=== PATIENT | female | born 1970 | race Caucasian/White ===

== ENCOUNTER 2022-01-15 08:49 | Outpatient (REF) | payer OTHER, SELFPAY ==
--- NOTE | ~2022-01-15 | XR_ITS ---
EXAMINATION: XR AP STANDING VIEW BOTH KNEES. XR KNEE, LEFT. CLINICAL INFORMATION: Left knee pain COMPARISON: None TECHNIQUE: AP standing view of both knees. Lateral and sunrise views of the left knee. FINDINGS: Small left knee joint effusion. Mild medial compartment osteoarthritis. No fracture. Normal AP standing view of the right knee. XR/XR knee standing BI IMPRESSION: Mild medial compartment osteoarthritis of the left knee with a small joint effusion.
--- NOTE | ~2022-01-15 | XR_ITS ---
EXAMINATION: XR AP STANDING VIEW BOTH KNEES. XR KNEE, LEFT. CLINICAL INFORMATION: Left knee pain COMPARISON: None TECHNIQUE: AP standing view of both knees. Lateral and sunrise views of the left knee. FINDINGS: Small left knee joint effusion. Mild medial compartment osteoarthritis. No fracture. Normal AP standing view of the right knee. XR/XR knee LT 2V IMPRESSION: Mild medial compartment osteoarthritis of the left knee with a small joint effusion.
== END 2022-01-15 08:50 | disposition home or self-care (01) ==
LOC: HO.HOSX 08:49
PROVIDERS: Visit Provider Physician Assistant
DX: M17.12 Unilateral primary osteoarthritis, left knee (principal); S83.242D Other tear of medial meniscus, current injury, left knee, subsequent encounter; M25.561 Pain in right knee
CPT/HCPCS: 73560; 73565

== ENCOUNTER 2022-03-03 07:30 | Day surgery (SDC) | payer OTHER, SELFPAY ==
[2022-02-12 10:08] VITALS: BMI 42.5
--- NOTE | 2022-03-02 09:13 | P.CONAN_ITS ---
Documented by User: Pratibha Butcher NP 03/02/22 09:14 HPI - Anesthesia Eval Consult details Narrative: 51yo F for Left Knee Arthroscopy PMFSH Active Problems Active Problems: All Active Problems (Updated 02/12/22 @ 10:07 by Ailyn Kc RN) Osteoarthritis of right knee (Acute) Medial meniscus tear (Acute) Osteoarthritis of left knee (Acute) Past Medical History Medical History Diabetes GERD (gastroesophageal reflux disease) HTN (hypertension) Family History Family History Brother Diabetes Mother Diabetes Surgical History Surgical History H/O colonoscopy History of esophagogastroduodenoscopy (EGD) Social History Social History Household Members: Spouse and Children Housing: House Are you a primary physician locums urgent care to a significant other at home: No Do you presently have visiting nurse or other home services: No Alcohol intake: never Patient Tobacco Use Status: Never used Tobacco Current occupational status: employed Current occupation: rt handed Meds Allergies Allergy/AdvReac Type Severity Reaction Status Date / Time omeprazole Allergy Intermediate dyspnea/arnold Verified 02/27/22 11:04 h pantoprazole Allergy Intermediate Rash Verified 02/27/22 11:04 Home Medications Medication Instructions Recorded Confirmed Last Taken Type metformin 500 mg tablet,extended 500 mg PO BID 01/15/22 02/12/22 Unknown History release 24 hr propranolol 60 mg capsule,24 60 mg PO DAILY 01/15/22 02/12/22 03/03/22 History hr,extended release spironolactone 25 mg tablet 25 mg PO DAILY 01/15/22 02/12/22 Unknown History Exam Exam Date and Time: March 02, 2022912 Height,Weight and Vital Signs: Height 5 ft 3 in Weight 108.862 kg Assessment and Plan Assessment Anesthesia Assessment: Chart Reviewed Documented by User: Edison Khanna MD 03/03/22 17:15 HPI - Anesthesia Eval Consult details Narrative: 51yo F for Left Knee Arthroscopy Obesity PMFSH Past Medical History Medical History Diabetes GERD (gastroesophageal reflux disease) HTN (hypertension) Family History Family History Brother Diabetes Mother Diabetes Family history of problems with anesthesia: No Surgical History Surgical History H/O colonoscopy History of esophagogastroduodenoscopy (EGD) History of Problems with Anesthesia: No Social History Social History Household Members: Spouse and Children Housing: House Are you a primary physician locums urgent care to a significant other at home: No Do you presently have visiting nurse or other home services: No Alcohol intake: never Patient Tobacco Use Status: Never used Tobacco Current occupational status: employed Current occupation: rt handed Meds Allergies Allergy/AdvReac Type Severity Reaction Status Date / Time omeprazole Allergy Intermediate dyspnea/arnold Verified 02/27/22 11:04 h pantoprazole Allergy Intermediate Rash Verified 02/27/22 11:04 Home Medications Medication Instructions Recorded Confirmed Last Taken Type metformin 500 mg tablet,extended 500 mg PO BID 01/15/22 02/12/22 Unknown History release 24 hr propranolol 60 mg capsule,24 60 mg PO DAILY 01/15/22 02/12/22 03/03/22 History hr,extended release spironolactone 25 mg tablet 25 mg PO DAILY 01/15/22 02/12/22 Unknown History Exam Airway Mallampati Class: III TM Dist: >3cm Neck ROM: Full Loose/Missing/Broken Teeth: Yes (Chipped teeth) Heart: S1,S2 Lungs: b/l breath sounds Assessment and Plan Assessment Anesthesia Assessment: Anesthesia Plan Discussed ([employer]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 ) Final Anesthetic Review Family History of Problems with Anesthesia: No History of Problems with Anesthesia: No NPO: Yes ASA Class: III Final Preanesthetic Review: Meds/Allgs Chart Reviewed, Consent Obtained/Reviewed and Anes Risks/Benef Reviewed Patient Risk: Intermediate Procedure Risk: Intermediate Anesthetic Plan Anesthetic Plan: GA Disposition: Standard PACU
[2022-03-03] VITALS (9 sets, daily range): BP systolic 136–164; BP diastolic 64–82; PULSE 51–68; RESP 14–18; TEMP 36.2–36.6; O2SAT 96–98; BMI 42.1
[2022-03-03 07:53] LABS: Glucose, Whole Blood 114 mg/dL (60-115)
[2022-03-03] MEDS: Lactated Ringers 1,000 ML 100 ML IVCONT (08:04)
--- NOTE | 2022-03-03 08:21 | PC.NURSE ---
anesthesia using interpretor line syracom for consent
--- NOTE | 2022-03-03 08:25 | PC.NURSE ---
tiger text sent to dr. brower regarding small red ring below left knee on calf from gardening areas closed. stated okay to proceed
--- NOTE | 2022-03-03 10:08 | MHC.SHP ---
Pre-Procedural Eval Section A Date of Service: 03/03/22 The patient is an INPATIENT: No Changes since office visit: Yes Patient answered all questions; No Cold of Flu in the past 2 weeks, No New Medical Problems and No Changes in Medication The History & Physical has been completed within 30 days and I have reviewed it.: Yes Section B Chief Complaint: Other tear of medial meniscus, current injury, Allergies: Allergies Allergy/AdvReac Type Severity Reaction Status Date / Time omeprazole Allergy Intermediate dyspnea/arnold Verified 02/27/22 11:04 h pantoprazole Allergy Intermediate Rash Verified 02/27/22 11:04 Plan I have reviewed the history and physical and performed a pertinent physical examination on my patient. No changes have occurred unless specified.
--- NOTE | 2022-03-03 11:35 | P.BOP_ITS ---
Brief Operative Note Date of Service: 03/03/22 Pre-op diagnosis: Left knee MMT Post-op diagnosis: other (left knee arthritis and medial meniscus tear) Procedure: Left knee partial medial meniscectomy and chondroplasty Surgeon: Randy Lee MD Anesthesia: GETA and local Was an Independent Jeweler used for this Procedure?: No Estimated blood loss (mL): 0 Tourniquet time (min): 20 Pathology: none sent Condition: stable Disposition: PACU
--- NOTE | 2022-03-03 11:40 | P.OP_ITS ---
Operative Note Operative Note Date of Service: 03/03/22 Narrative: Date of Service: 03/03/22 Pre-op diagnosis: Left knee MMT Post-op diagnosis: other (left knee arthritis and medial meniscus tear) Procedure: Left knee partial medial meniscectomy and chondroplasty Surgeon: Randy Lee MD Anesthesia: GETA and local Was an Lead Electrical Controls Engineer used for this Procedure?: No Estimated blood loss (mL): 0 Tourniquet time (min): 20 Pathology: none sent Condition: stable Disposition: PACU Procedure in detail Patient was brought to the operating room placed supine on the arthroscopic table and prepped and draped in standard sterile fashion. A time-out was called to identify proper site proper procedure proper surgeon and IV antibiotics per weight were administered. I began by exsanguinating the limb and insufflating tourniquet to 300 mm Hg. Then made a standard anterolateral stab incision. The knee was insufflated with water and 30 degree arthroscope was placed. There was grade 1/2 fibrillations of the patella but overall suprapatellar pouch and the gutters were clean. I descended into the medial compartment where I made my medial portal under direct visualization. There was a root tear with an unatable posterior horn of the medial meniscus. There were grade 3 changes of the frmoeal condyle and grade 2 changes of the medial plateau. I used a combination of biter shaver and cautery to remove unstable portions of the meniscus. Approximately 40% meniscal volume was removed and the root was removed. Once I was satisfied with this the ACL was examined and found to be intact and the lateral compartment also was without the need for intervention. There was a osteophyte in the notch and the intermeniscal ligament was resected. I then removed all instrumentation and closed the portals with skin glue. 25 mL of 2% Marcaine with epinephrine was injected into the joint and the surrounding soft tissues. Patient was then placed in sterile dressing extubated brought recovery room stable condition. There were no known complications.
[2022-03-03] MEDS: Acetaminophen 325 MG TABLET 975 MG PO (12:28)
== END 2022-03-03 13:55 | disposition home or self-care (01) ==
PROVIDERS: PCP Physician Assistant Medical; Visit Provider Orthopaedic Surgery
PROC: (CPT 29870; principal; 2022-03-03 09:40)
DX: S83.242A Other tear of medial meniscus, current injury, left knee, initial encounter (principal); M17.12 Unilateral primary osteoarthritis, left knee; X58.XXXA Exposure to other specified factors, initial encounter; Y93.9 Activity, unspecified; Y92.9 Unspecified place or not applicable; Y99.8 Other external cause status; I10 Essential (primary) hypertension; K21.9 Gastro-esophageal reflux disease without esophagitis; E11.9 Type 2 diabetes mellitus without complications; Z79.84 Long term (current) use of oral hypoglycemic drugs; Z79.899 Other long term (current) drug therapy; Z88.8 Allergy status to other drugs, medicaments and biological substances
CPT/HCPCS: 29881; 82947; J0171; J0690; J1100; J1885; J2250; J2405; J3010

== ENCOUNTER 2022-03-30 11:00 | Outpatient (RCR) | payer OTHER, SELFPAY ==
--- NOTE | 2022-03-09 15:52 | MHC.PT.EP ---
[facility] [place] Office [place] Office [place] Office [address] Mouna Stevens [address] [phone] F: [phone] F: [phone] F: [phone] F: [phone] Physical Therapy Plan of Care Date of Evaluation: Date of Surgery: 03/03/22 Diagnosis: PARTIAL MEDIAL MENISCECTOMY AND CHONDROPLASTY Assessment: CARMEL IS A PLEASANT 51 YO [place] SPEAKING WOMAN WHO PRESENTS POD #6 FOR ORTHOPEDIC FOLLOW UP AND PT EVALUATION. UPON EXAM SHE DEMONSTRATES THE EXPECTED IMPAIRMENTS OF DECREASED ROM, DECREASED STRENGTH, ALTERED POSTURE AND POSITIONING,ALTERED GAIT AND BALANCE, AND INCREASED PAIN AND EDEMA. FUNCTIONAL LIMITATIONS INCLUDE DECREASED ABILITY TO PERFORM HOMEMAKING AND SELF-CARE TASKS, DECREASED ABILITY TO PERFORM WALKING, RUNNING, JUMPING AND SQUATTING, INABILITY TO DRIVE AND PERFORM WORK TASKS, DECREASED PARTICIPATION IN COMMUNITY AND RECREATIONAL ACTIVITIES AND DISRUPTED SLEEP. THE Pt IS A GOOD CANDIDATE FOR SKILLED PT DUE TO AGE, POTENTIAL REMEDIATION OF IMPAIRMENTS, TYPICAL DISEASE/CONDITION PROGRESSION AND PROGNOSIS, COMORBIDITIES, AND MOTIVATION. PT WOULD BENEFIT FROM TAILORED PROGRAM OF THERAPEUTIC ACTIVITIES, FUNCTIONAL TRAINING, GAIT TRAINING, POSTURAL EDUCATION, NEUROMUSCULAR RE-EDUCATION, AND MODALITIES NEEDED. Frequency and Duration: The patient will be seen 2 X WEEK FOR 4 WEEKS Short Term Goals: INITIATE HEP AND PROMOTE SELF MANAGEMENT OF SYMPTOMS Senior Living Goals: TO DEMONSTRATE FULL KNEE ROM, EQUAL ALBERT TO DEMONSTRATE FULL LE STRENGTH, EQUAL ALBERT TO ASCEND AND DESCEND STAIRS WITH RECIPROCAL GAIT WITHOUT PAIN GREATER THAN 2/10 TO AMBULATE AD DC ON LEVEL AND UNEVEN SURFACES FOR FITNESS WITHOUT PAIN GREATER THAN 2/10 Treatment Plan: Modalities to reduce pain, spasms and effusion. Manual therapy to restore motion and function. Therapeutic exercise to improve strength and flexibility. Neuromuscular re-education for posture and balance. Therapeutic activities to return to functional activities of daily living. Electronically signed by: BINDU LUNA PT, DPT Please sign and return to therapist. Thank you for your referral.
== END 2022-08-17 15:19 | disposition home or self-care (01) ==
LOC: HO.PT 11:00
PROVIDERS: Visit Provider Physician Assistant
DX: S83.242A Other tear of medial meniscus, current injury, left knee, initial encounter (principal)
CPT/HCPCS: 97110; 97161; 97530

== ENCOUNTER → 2022-10-15 08:58 | Outpatient (BNVA) | payer OTHER, SELFPAY | PROVIDERS: PCP Physician Assistant Medical; Visit Provider Nurse Practitioner | DX: Z13.89 Encounter for screening for other disorder (principal) ==

== ENCOUNTER 2022-11-04 12:47 | Outpatient (REF) | payer OTHER, SELFPAY ==
[2022-11-13 23:33] LABS: Pancreatic Elastase-1 >500 mcg/g
== END 2022-11-04 12:48 | disposition home or self-care (01) ==
LOC: HO.LNP 12:47
PROVIDERS: Visit Provider Nurse Practitioner
DX: R10.10 Upper abdominal pain, unspecified (principal); K21.9 Gastro-esophageal reflux disease without esophagitis
CPT/HCPCS: 82656; 87338

== ENCOUNTER 2022-11-05 09:45 | Outpatient (REF) | payer OTHER, SELFPAY ==
--- NOTE | ~2022-11-05 | US_ITS ---
EXAMINATION: US ABDOMEN COMPLETE CLINICAL INFORMATION: Upper abdominal pain, unspecified. COMPARISON: None TECHNIQUE: Real-time imaging of the abdominal viscera. FINDINGS: PANCREAS: Normal. ABDOMINAL AORTA: The proximal, mid, and distal segments are normal in caliber. INFERIOR VENA CAVA: Visualized portions are normal. LIVER: The liver is normal in size. The liver contour is normal. There is diffuse increased liver parenchymal echogenicity, consistent with infiltrative hepatocellular disease. No definite focal lesion is seen, but evaluation is limited due to poor sound beam penetration through the coarse echogenic liver parenchyma. There is no intrahepatic biliary duct dilatation seen. GALLBLADDER: Normal. The gallbladder is physiologically distended without evidence of stones, sludge, polyps, wall thickening or pericholecystic fluid. COMMON BILE DUCT: Normal in caliber measuring 0.4 cm in diameter. RIGHT KIDNEY: Normal. No hydronephrosis. No renal calculi or focal parenchymal lesions. The kidney measures 12.0 cm in maximum dimension. LEFT KIDNEY: Normal. No hydronephrosis. No renal calculi or focal parenchymal lesions. The kidney measures 12.1 cm in maximum dimension. SPLEEN: Normal. The spleen measures 11.8 cm in maximum dimension. FREE FLUID: None. US/US abdomen complete IMPRESSION: No acute findings to explain symptoms of abdominal pain. Increased hepatic echogenicity which can be seen in the setting of hepatic steatosis or underlying liver disease.
== END 2022-11-05 09:46 | disposition home or self-care (01) ==
LOC: HO.US 09:45
PROVIDERS: PCP Physician Assistant Medical; Visit Provider Nurse Practitioner
DX: R10.10 Upper abdominal pain, unspecified (principal); K21.9 Gastro-esophageal reflux disease without esophagitis
CPT/HCPCS: 76700

== ENCOUNTER 2022-12-08 08:18 | Outpatient (REF) | payer OTHER, SELFPAY ==
[2022-12-08 09:47] LABS: MANUAL DIFF FLAG NO
[2022-12-08 10:34] LABS: Basophils Percent Auto 0.4 % (0-2); Eosinophils Absolute Auto 0.2 X10*3/uL (0.0-0.4); Eosinophils Percent Auto 2.5 % (0-4); Hematocrit 40.1 % (37.0-47.0); Imm Gran Abs Auto 0.02 X10*3/uL (0.00-0.03); Imm Gran Pct Auto 0.3 % (0.0-0.4); Lymphocytes Percent Auto 29.4 % (20-40); Mean Corpuscular HGB Conc 32.4 g/dl (31.0-35.0); Mean Corpuscular Hemoglobin 27.9 pg (27.0-33.0); Mean Corpuscular Volume 86.1 fL (80.0-98.0); Mean Platelet Volume 9.9 fL (9.4-12.3); Monocytes Absolute Auto 0.4 X10*3/uL (0.1-1.2); Monocytes Percent Auto 6.5 % (2-11); Neutrophils Absolute Auto 4.2 x10*3/uL (2.0-8.3); Neutrophils Percent Auto 60.9 % (45-73); Platelet Count 246 X10*3/uL (160-400); Red Blood Count 4.66 X10*6/uL (4.20-5.50); Red Cell Distribution Width 13.7 % (11.0-16.0); White Blood Count 6.8 X10*3/uL (4.8-10.8)
[2022-12-08 11:40] LABS: Alanine Aminotransferase 22 U/L (0-31); Albumin Level 4.5 g/dL (3.5-5.0); Alkaline Phosphatase 45 U/L (39-117); Anion Gap 14 (12-20); Aspartate Amino Transferase 18 U/L (5-31); Bilirubin Total 0.6 mg/dL (0.0-1.0); Blood Urea Nitrogen 13 mg/dL (9-16); Carbon Dioxide 26 mmol/L (22-29); Chloride 108 mmol/L (96-108); Estimated Glomerular Filt Rate > 60; Glucose Random 130 mg/dL (60-115); Potassium 4.5 mmol/L (3.3-5.1); Sodium 143 mmol/L (135-145)
[2022-12-08 12:08] LABS: Ferritin 35 ng/mL (10-250)
[2022-12-08 12:48] LABS: Gamma Glutamyl Transpeptidase 37 U/L (7-33)
[2022-12-09 05:56] LABS: HBS Num1 0.89 mIU/mL (0-7.99); HBc Num1 0.11 S/CO (0.00-0.79); HBsAGNum1 0.35 S/CO (0.00-0.99); HIV AB/AG Nonreactive (Nonreactive); HIV Num 1 0.05 S/CO (0.00-0.99); Hepatitis A Antibody IgM 0.54 Index (0-0.79); Hepatitis B Core Antibody Nonreactive (Nonreactive); Hepatitis B Surface Antigen Negative (Negative); ~HepC Num1 0.21 S/CO (0.00-0.79); ~Hepatitis A Antibody IgM Nonreactive (Nonreactive); ~Hepatitis B Surface Antibody NONREACTIVE (Nonreactive); ~Hepatitis C Antibody Nonreactive (Nonreactive)
[2022-12-10 13:23] LABS: Alpha Fetoprotein 3.3 ng/mL
[2022-12-13 19:04] LABS: Smooth Muscle Antibody <20 U (<20)
[2022-12-15 14:14] LABS: Mitochondrial Antibodies NEGATIVE (NEGATIVE)
== END 2022-12-08 08:19 | disposition home or self-care (01) ==
LOC: HO.LAB 08:18
PROVIDERS: PCP Physician Assistant Medical; Visit Provider Nurse Practitioner
DX: K76.0 Fatty (change of) liver, not elsewhere classified (principal); R10.10 Upper abdominal pain, unspecified; K21.9 Gastro-esophageal reflux disease without esophagitis; E11.9 Type 2 diabetes mellitus without complications; E66.9 Obesity, unspecified; Z79.84 Long term (current) use of oral hypoglycemic drugs
CPT/HCPCS: 36415; 80053; 82105; 82728; 82977; 85025; 86015; 86255; 86256; 86704; 86706; 86709; 86803; 87340; 87389

== ENCOUNTER → 2023-02-01 07:49 | Outpatient (REF) | payer OTHER, SELFPAY ==
--- NOTE | ~2023-02-01 | NM_ITS ---
EXAMINATION: BILIARY TRACT IMAGING STUDY WITH CCK CLINICAL INFORMATION: Upper abdominal pain.. COMPARISON: No previous biliary scan is available for comparison. Abdominal ultrasound dated 11/05/2022 is available for comparison.. TECHNIQUE: Serial gamma scintillation camera images were obtained over the abdomen for a total observation period of 97 minutes following the intravenous administration of 5 mCi Tc-99m Mebrofenin. FINDINGS: There is good concentration of activity in the liver by 5 minutes post injection. Biliary activity is visualized by 15 minutes. The gallbladder is well visualized by 25 minutes. Small bowel is well visualized by 25 minutes. At 60 minutes post radiopharmaceutical injection, a 30-minute infusion of 2.1 micrograms Sincalide was then begun and an additional 40 minutes of images were obtained. There is good emptying of the gallbladder. By the end of the study there is good clearance of activity from the liver and visualization of diffuse small bowel activity. The calculated gallbladder ejection fraction is 80% (normal gallbladder ejection fraction is greater than 35%). NM/NM hepatobiliary w pharm IMPRESSION: Visualization of the gallbladder is evidence of a patent cystic duct and strong evidence against the diagnosis of acute cholecystitis. The common bile duct is patent. Gallbladder emptying and ejection fraction are normal. Liver function appears normal.
== END ==
LOC: HO.NUCMED 07:49
PROVIDERS: PCP Physician Assistant Medical; Visit Provider Nurse Practitioner
DX: R10.10 Upper abdominal pain, unspecified (principal); K76.0 Fatty (change of) liver, not elsewhere classified
CPT/HCPCS: 78227; A9537

== ENCOUNTER → 2023-03-12 09:34 | Outpatient (BNVA) | payer OTHER, SELFPAY | PROVIDERS: PCP Physician Assistant Medical; Visit Provider Nurse Practitioner ==

== ENCOUNTER 2023-05-26 08:34 | Outpatient (REF) | payer OTHER, SELFPAY ==
--- NOTE | ~2023-05-26 | FL_ITS ---
EXAMINATION: XR UPPER GI SERIES WITH SMALL BOWEL CLINICAL INFORMATION: Upper abdominal pain COMPARISON: None available. TECHNIQUE: Routine upper GI air-contrast study and small bowel follow-through was performed. FINDINGS: A single video news editor view of the abdomen reveals nonspecific bowel gas pattern with scattered stool in colon. Following oral administration of thick barium and effervescent granules there is normal propagation of bolus from the oral cavity through the pharynx and esophagus into stomach without any evidence of obstruction, narrowing or stricture. On placing 6 supine and prone lying, course, caliber and peristalsis of the stomach, duodenal bulb and the sweep is normal. There are small scattered gastric erosions seen in the body of the stomach. No evidence of gastric or duodenal ulceration seen. There is mild gastroesophageal reflux without hiatal hernia. FLUOROSCOPY TIME: 3.9 minutes DOSE AREA PRODUCT: 66.969 uGy-m2 (microgray-meter squared) FL/FL upper GI small bowel IMPRESSION: 1. Mild gastroesophageal reflux without hiatal hernia. 2. Small gastric erosions are seen in the body of the stomach. 3. There is no evidence of gastric or duodenal ulceration.
== END 2023-05-26 08:35 | disposition home or self-care (01) ==
LOC: HO.XRAY 08:34
PROVIDERS: PCP Physician Assistant Medical; Visit Provider Nurse Practitioner
DX: R10.10 Upper abdominal pain, unspecified (principal); K21.9 Gastro-esophageal reflux disease without esophagitis
CPT/HCPCS: 74240; 74248

== ENCOUNTER → 2023-05-26 08:35 | Outpatient (BNV) | payer OTHER, SELFPAY | PROVIDERS: PCP Physician Assistant Medical; Visit Provider Radiology Diagnostic Radiology | DX: K21.9 Gastro-esophageal reflux disease without esophagitis (principal) | CPT/HCPCS: 74221 ==

== ENCOUNTER 2023-05-31 09:51 | Outpatient (AMB) | payer OTHER, SELFPAY ==
--- NOTE | 2023-05-31 09:54 | A.OFFVIS_ITS ---
Intake Intake Visit Reasons: NProblem, Right knee, behind knee pain Intake Note: Ginny is a 53 year old female who presents today with new complaints of posterior right knee pain. She denies any injury. The pain started 3 months ago, she reports she had an ultrasound of her knee and they found a cyst behind her knee. She is taking medications for her knee pain including meloxicam although she does not recall the dose. Allergies omeprazole Allergy (Intermediate, Verified 05/31/23 09:58) dyspnea/rash pantoprazole Allergy (Intermediate, Verified 05/31/23 09:58) Rash propolis (bee glue) Allergy (Intermediate, Verified 05/31/23 09:58) Rash Medication List - Last Reconciled 05/31/23 by Sinai Kim RN chlorthalidone 25 mg PO DAILY dicyclomine 10 mg PO QID lansoprazole 30 mg PO DAILY metformin ER 1,000 mg PO BID peg 3350-electrolytes 236-22.74-6.74 -5.86 gram (Golytely) 240 mL PO Q10M 1 day HPI NProblem, Right knee, behind knee pain HPI Details Ginny is a 53 year old female who presents today with new complaints of posterior right knee pain. She denies any injury. The pain started 3 months ago, she reports she had an ultrasound of her knee and they found a cyst behind her knee. She is taking medications for her knee pain including meloxicam although she does not recall the dose. She underwent left knee arthroscopy about a year and half ago and did well. At that time she was diagnosed with medial meniscus tear and osteoarthritis left knee. Her right knee now however feels similar. She describes medial-sided pain and posterior fullness. A ultrasound revealed Mcfarlane cyst [facility] Medical History (Updated 05/31/23 @ 10:20 by Randy Lee MD) Fracture of distal humerus GERD (gastroesophageal reflux disease) HTN (hypertension) Medial meniscus tear Diabetes Surgical History History of surgical removal of meniscus of knee S/P excision of lipoma History of esophagogastroduodenoscopy (EGD) H/O colonoscopy Family History Brother Diabetes Mother Diabetes Social History Household Members: Spouse and Children Housing: House Are you a primary day care provider to a significant other at home: No Do you presently have visiting nurse or other home services: No Alcohol intake: never Patient Tobacco Use Status: Never used Tobacco Current occupational status: employed Current occupation: rt handed Physical Exam Extrem Other: Right knee with moderate effusion tenderness to palpation medial compartment posterior fullness. 0-125 degrees of motion. Positive medial Office Procedures Joint Injection/Drain Joint Injection/Drain Details: Injected 1 mL of Decadron and 3 mL 1% lidocaine and 3 mL of 0.25% Marcaine. Site was prepped using aseptic technique. Patient tolerated the procedure well. Primary Site: right knee Approach Used: anterolateral Coding - Large joint Procedure code (CPT) selection complete Results Reviewed Results Reviewed: 05/31/23 10:22 BUPivacaine MPF 0.25 % [Sensorcaine-MPF 0.25% 10 ML] 10 ml .ROUTE .STK-MED ONE Lidocaine HCl 2 % MPF [Xylocaine 2 % MPF] 5 ml .ROUTE .STK-MED ONE dexAMETHasone sod phosphate [Decadron] 4 mg .ROUTE .STK-MED ONE Assessment & Plan Assessment & Plan (1) Knee effusion, right: Code(s): M25.461 - Effusion, right knee Plan: This is a 53-year-old with right knee pain, effusion and a history of contralateral knee arthroscopy. I injected her right knee today and discussed treatment options. I think it is reasonable to order an MRI given the effusion and pain she has had unremitting now 3 months. It is (2) Diabetes: Comment: taking metformin only Code(s): E11.9 - Type 2 diabetes mellitus without complications Plan: I discussed hyperglycemic effects of injections Orders: Orders MR knee RT wo con Today M25.461 - Effusion, right knee Coding Level of Care Code Est Pt Level 4 (36502) Diagnoses Knee effusion, right M25.461 Diabetes E11.9 CPT Codes Coding - Large joint: 69821 - Large joint ([id number])
== END 2023-05-31 11:12 | disposition home or self-care (01) ==
PROVIDERS: PCP Physician Assistant Medical; Visit Provider Orthopaedic Surgery
DX: M25.461 Effusion, right knee (principal)
CPT/HCPCS: 20610; 99214

== ENCOUNTER → 2023-05-31 09:51 | Outpatient (BNVA) | payer OTHER, SELFPAY | PROVIDERS: PCP Physician Assistant Medical; Visit Provider Orthopaedic Surgery | DX: M25.461 Effusion, right knee (principal); E11.9 Type 2 diabetes mellitus without complications; Z79.84 Long term (current) use of oral hypoglycemic drugs | CPT/HCPCS: 20610; J1100 ==

== ENCOUNTER 2023-06-17 09:05 | Outpatient (AMB) | payer OTHER, SELFPAY ==
--- NOTE | 2023-06-17 09:06 | A.OFFVIS_ITS ---
Intake Vital Signs 06/17/23 09:08 Height 5 ft 3 in Weight 230 lb 9.656 oz BMI 40.8 BP 138/70 Blood Pressure Location Rt brachial Position Sitting Pulse 77 Intake Visit Reasons: Follow up Intake Note: Patient follow up for small bowel study and abdominal pain. Patient cc: Patient continues to c/o abdominal bloating, and abdominal pain. Denies any other GI issues. Patient states she is not taking the lansoprazole or dicyclomine. Liquid Floor And Wall Applier Required: Yes Liquid Floor And Wall Applier Name: daughter Accompanied by: Daughter Allergies omeprazole Allergy (Intermediate, Verified 06/17/23 09:16) dyspnea/rash pantoprazole Allergy (Intermediate, Verified 06/17/23 09:16) Rash propolis (bee glue) Allergy (Intermediate, Verified 06/17/23 09:16) Rash HPI Follow up HPI Details Assessment & Plan (1) Upper abdominal pain: Code(s): R10.10 - Upper abdominal pain, unspecified Plan: [place] # dtr translates per pt request We review the findings of the HIDA scan and it seems the pain is NOT from the liver or gallbladder. So, it may be bowel cramping. We still have the small bowel study coming up. She also has not yet been sc heduled for her EGD/colonoscopy. With regards to her liver we go over all of the results and it seems that she has simple fatty liver due to obesity. We discussed the 3 important factors to managing this which is weight loss blood sugar control and avoidance of alcohol. SHe is taking a milk thistle supplement and we discuss Chay-E. Return office visit after Small bowel study in May. EGD/COLONOSCOPY NOT YET OBTAINED BIOPSY UPPER GI WITH SMALL-BOWEL FOLLOW-THROUGH Scheduled for 01/11/2023 BUT NOT OBTAINED. (2) GERD (gastroesophageal reflux diseas e): Code(s): K21.9 - Gastro-esophageal reflux disease without esophagitis (3) Morbid obesity: Code(s): E66.01 - Morbid (severe) obesity due to excess calories (4) Hepatic steatosis: Comment: BASELINE LABS 12/08/22 Plt Count 246 Estimated GFR > 60 Random Glucose 130 H Ferritin 35 Total Bilirubin 0.6 GGT 37 H AST 18 ALT 22 Alkaline Phosphatase 45 Alpha Fetoprotein 3.3 Anti-Mitochondrial Ab NEGATIVE Anti-Smooth Muscle Ab <20 Hepatitis A IgM Ab Nonreactive Hep Bs Antigen Negative Hep Bs Antibody NONREACTIVE Hep B Core Total Ab Nonreactive Hepatitis C Ab (EIA) Nonreactive HIV 1&2 Ab/P24 Ag 4thGn Nonreactive She does not drink alcohol but she is obese CURRENT LABS .. ULTRASOUND OF THE ABDOMEN 11/06/22 FINDINGS: LIVER: The liver is normal in size. The liver contour is normal. There is diffuse increased liver parenchymal echogenicity, consistent with infiltrative hepatocellular disease. No definite focal lesion is seen, but evaluation is limited due to poor sound beam penetration through the coarse echogenic liver parenchyma. There is no intrahepatic biliary duct dilatation seen. GALLBLADDER: Normal. The gallbladder is physiologically distended without evidence of stones, sludge, polyps, wall thickening or pericholecystic fluid. COMMON BILE DUCT: Normal in caliber measuring 0.4 cm in diameter. US/US abdomen complete IMPRESSION: ? No acute findings to explain symptoms of abdominal pain. ? Increased hepatic echogenicity which can be seen in the setting of hepatic steatosis or underlying liver disease. .CONSIDER US WITH ELASTOGRAPHY NEXT surv ey INTERVAL Code(s): K76.0 - Fatty (change of) liver, not elsewhere classified (5) Abdominal cramping: Code(s): R10.9 - Unspecified abdominal pain Medications: New peg 3350-electroly luz marina 236-22.74-6.74 -5.86 gram (Golyt angela) until feca l effluent is ravi r; do not exceed a total volume of 2 ,000 mL 240 mL PO Q10M 1 day 4,000 mL 0RF Z12.11 - Encounter for screening for malignant neoplas m of colon EGD/COLONOSCOPY NOT YET OBTAINED BIOPSY UGI WITH SMALL BOWEL FOLLOW THROUGH 05/26/23 FINDINGS: A single proposal review analyst view of the abdomen reveals nonspecific bowel gas pattern with scattered stool in colon. Following oral administration of thick barium and effervescent granules there is normal propagation of bolus from the oral cavity through the pharynx and esophagus into stomach without any evidence of obstruction, narrowing or stricture. On placing 6 supine and prone lying, course, caliber and peristalsis of the stomach, duodenal bulb and the sweep is normal. There are small scattered gastric erosions seen in the body of the stomach. No evidence of gastric or duodenal ulceration seen. There is mild gastroesophageal reflux without hiatal hernia. FLUOROSCOPY TIME: 3.9 minutes DOSE AREA PRODUCT: 66.969 uGy-m2 (microgray-meter squared) FL/FL upper GI small bowel IMPRESSION: 1. Mild gastroesophageal reflux without hiatal hernia. 2. Small gastric erosions are seen in t he body of the stomach. 3. There is no evidence of gastric or d uodenal ulceration. TODAY'S VISIT [place] # daughter translates per patient request We review the UGI and since it shows erosions I encourage the use of the lansoprazole - she had stopped taking it r/t I was not feeling HB. This is silke true since she takes meloxicam. They have not yet heard to schedule EGD/colonoscopy. Message says that a message was left in February for call back but they may have left this in [place] which could have confuse the issue. I am going to walk them down to make the appointment today since it will be important to evaluate her stomach to see if she really does have a row shins or how stents of the may be. She has not needed to use the dicyclomine which is good. However, she does still feel like ?something is in my stomach. ? this likely is the gastric erosions so again I really encouraged that she use the lansoprazole. [facility] Medical History Fracture of distal humerus GERD (gastroesophageal reflux disease) HTN (hypertension) Medial meniscus tear Diabetes Surgical History History of surgical removal of meniscus of knee S/P excision of lipoma History of esophagogastroduodenoscopy (EGD) H/O colonoscopy Family History Brother Diabetes Mother Diabetes Social History Household Members: Spouse and Children Housing: House Are you a primary rn medicare to a significant other at home: No Do you presently have visiting nurse or other home services: No Alcohol intake: never Patient Tobacco Use Status: Never used Tobacco Current occupational status: employed Current occupation: rt handed Review of Systems Const Denies fatigue, Denies fever(s), Denies night sweats, Denies poor appetite and Denies weight loss ENT Reports Normal hearing present, Denies dental pain, Denies dysphagia, Denies hearing loss, Denies mouth pain, Denies odynophagia, Denies throat swelling, Denies tongue swelling and Reports other (Dentition adequate) Card Reports no additional complaints Resp Reports no additional complaints GI Reports abdominal pain, Denies melena, Denies bloating, Denies hematochezia, Denies constipation, Denies GI cramping, Denies dysphagia, Denies excessive flatus, Denies early satiety, Reports dyspepsia, Denies heartburn, Denies diarrhea, Denies nausea, Denies odynophagia, Denies vomiting and Denies hematemesis Skin/Breast Denies pruritus, Denies lesions, Denies rash and Denies jaundice Neuro Reports Normal hearing present and Denies Abnormal speech present Endo Denies fatigue Aller/Immun Denies throat swelling and Denies tongue swelling Physical Exam Vital Signs: Last Vital Signs Pulse 77 06/17/23 09:08 BP 138/70 06/17/23 09:08 BMI result Body Mass Index 40.8 Const General: cooperative, no acute distress, well developed and well groomed Nutritional Appearance: well nourished and obese Orientation/consciousness: oriented to person, oriented to place and oriented to time Limitations: language barrier HEENT Head: Yes normocephalic and Yes atraumatic Eyes General: appearance normal, both eyes and all related structures Pupils: Equal, round and reactive pupils present Neck Neck: Yes normal visual inspection and Yes no lymphadenopathy Thyroid: Thyroid normal Resp Effort & Inspection: normal respiratory effort and able to speak in complete sentences Auscultation: clear to auscultation bilaterally Cardio Rate: regular rate Rhythm: regular rhythm Heart sounds: Normal, physiologic split S2 sound present Peripheral pulses: radial pulses present and posterior tibial pulses present GI Inspection: No distended, Yes Abdominal panniculus present and Yes obesity Palpation (GI): Soft to palpation, nontender, no guarding, not rigid and No hepatosplenomegaly present Percussion: Yes normal to percussion Auscultation: normal bowel sounds Rectal Exam - Female: deferred Skin General skin exam: no rashes or lesions noted, turgor normal, skin not dry, no jaundice, No spider nevi and no striae Rashes: no rashes Nails: normal Neuro General: oriented to person, oriented to place and oriented to time Cranial nerves: Yes Equal, round and reactive pupils present and Yes Normal hearing present Speech: No Abnormal speech present Extrem General: Yes normal to inspection, No clubbing, No cyanosis and No edema Psych Appearance: grossly normal and well kempt Mental Status: mental status grossly normal Speech and movement: Normal speech and movement present Affect: normal affect Attitude: cooperative Thought process: Normal thought process present and not confabulating Thought content: Normal thought content present Insight: Fair insight present (Psych) Judgement: Fair judgement present (Psych) Assessment & Plan Assessment & Plan (1) GERD (gastroesophageal reflux disease): Code(s): K21.9 - Gastro-esophageal reflux disease without esophagitis Plan: [place] # daughter translates per patient request We review the UGI and since it shows erosions I encourage the use of the lansoprazole - she had stopped taking it r/t I was not feeling HB. This is silke true since she takes meloxicam. They have not yet heard to schedule EGD/colonoscopy. Message says that a message was left in February for call back but they may have left this in [place] which could have confuse the issue. I am going to walk them down to make the appointment today since it will be important to evaluate her stomach to see if she really does have a row shins or how stents of the may be. She has not needed to use the dicyclomine which is good. However, she does still feel like ?something is in my stomach. ? this likely is the gastric erosions so again I really encouraged that she use the lansoprazole. Return office visit after the EGD/colonoscopy. (2) Upper abdominal pain: Code(s): R10.10 - Upper abdominal pain, unspecified (3) Abdominal cramping: Code(s): R10.9 - Unspecified abdominal pain (4) Hepatic steatosis: Comment: BASELINE LABS 12/08/22 Plt Count 246 Estimated GFR > 60 Random Glucose 130 H Ferritin 35 Total Bilirubin 0.6 GGT 37 H AST 18 ALT 22 Alkaline Phosphatase 45 Alpha Fetoprotein 3.3 Anti-Mitochondrial Ab NEGATIVE Anti-Smooth Muscle Ab <20 Hepatitis A IgM Ab Nonreactive Hep Bs Antigen Negative Hep Bs Antibody NONREACTIVE Hep B Core Total Ab Nonreactive Hepatitis C Ab (EIA) Nonreactive HIV 1&2 Ab/P24 Ag 4thGn Nonreactive She does not drink alcohol but she is obese CURRENT LABS .. ULTRASOUND OF THE ABDOMEN 11/06/22 FINDINGS: LIVER: The liver is normal in size. The liver contour is normal. There is diffuse increased liver parenchymal echogenicity, consistent with infiltrative hepatocellular disease. No definite focal lesion is seen, but evaluation is limited due to poor sound beam penetration through the coarse echogenic liver parenchyma. There is no intrahepatic biliary duct dilatation seen. GALLBLADDER: Normal. The gallbladder is physiologically distended without evidence of stones, sludge, polyps, wall thickening or pericholecystic fluid. COMMON BILE DUCT: Normal in caliber measuring 0.4 cm in diameter. US/US abdomen complete IMPRESSION: ? No acute findings to explain symptoms of abdominal pain. ? Increased hepatic echogenicity which can be seen in the setting of hepatic steatosis or underlying liver disease. .CONSIDER US WITH ELASTOGRAPHY NEXT survey INTERVAL Code(s): K76.0 - Fatty (change of) liver, not elsewhere classified Medications: Refilled lansoprazole 30 mg PO DAILY 30 caps 6RF K21.9 - Gastro-esophageal reflux disease without esophagitis Coding Level of Care Code Est Pt Level 3 (69504) Diagnoses GERD (gastroesophageal reflux disease) K21.9 Upper abdominal pain R10.10 Abdominal cramping R10.9 Hepatic steatosis K76.0
[2023-06-17 09:08] VITALS: BP 138/70; PULSE 77; BMI 40.8
== END 2023-06-17 09:59 | disposition home or self-care (01) ==
PROVIDERS: PCP Physician Assistant Medical; Visit Provider Nurse Practitioner
DX: K21.9 Gastro-esophageal reflux disease without esophagitis (principal); R10.10 Upper abdominal pain, unspecified; R10.9 Unspecified abdominal pain; K76.0 Fatty (change of) liver, not elsewhere classified
CPT/HCPCS: 99213

== ENCOUNTER → 2023-06-17 09:05 | Outpatient (BNVA) | payer OTHER, SELFPAY | PROVIDERS: PCP Physician Assistant Medical; Visit Provider Nurse Practitioner ==

== ENCOUNTER 2023-08-02 08:48 | Outpatient (REF) | payer OTHER, SELFPAY ==
--- NOTE | ~2023-08-02 | MR_ITS ---
EXAMINATION: MR KNEE WITHOUT CONTRAST, RIGHT CLINICAL INFORMATION: Right knee pain, swelling, numbness. Effusion. Difficulty walking. COMPARISON: Standing AP radiograph of the right knee dated 01/15/2022. TECHNIQUE: MRI of the knee without contrast was performed using routine sequences on a high-field scanner. FINDINGS: MENISCI: Medial Meniscus: Complete radial tear of the posterior root measuring up to 1.5 cm in ML dimension with an oblique inner margin tear extending through the medially extruded posterior horn and body. Adjacent soft tissue edema. Lateral Meniscus: Intact. LIGAMENTS: Cruciate: Intact. Collateral: Edema adjacent to the medial collateral ligament which may be related to the meniscal tear or indicate a grade 1 sprain. Intact fibular collateral ligament. EXTENSOR MECHANISM: Intact. ARTICULAR CARTILAGE/BONE: Patellofemoral Compartment: Patellar median ridge and medial patellar facet articular cartilage thinning and signal heterogeneity with surface irregularity and partial-thickness fibrillation. Tiny marginal osteophytes. Medial Compartment: Weightbearing articular cartilage thinning with areas of medial femoral condyle full-thickness loss. Small marginal osteophytes. Lateral Compartment: Intact articular cartilage. JOINT FLUID AND BURSAE: Moderate joint effusion and Mcfarlane's cyst with mild synovitis. Focal synovitis versus loose body posterior to the posterior cruciate ligament measuring up to 0.9 cm in greatest dimension. MR/MR knee RT wo con IMPRESSION: 1. Complete radial tear of the medial meniscus posterior root measuring 1.5 cm in ML dimension with an oblique inner margin tear extending through the medially extruded posterior horn and body. 2. Edema adjacent to the medial collateral ligament which may be related to the meniscal tear or indicate a grade 1 sprain. 3. Mild patellofemoral and medial compartment osteoarthritis. Moderate joint effusion and Mcfarlane's cyst with mild synovitis. Focal synovitis versus loose body posterior to the posterior cruciate ligament measuring up to 0.9 cm.
== END 2023-08-02 08:49 | disposition home or self-care (01) ==
LOC: HO.MRI 08:48
PROVIDERS: PCP Physician Assistant Medical; Visit Provider Orthopaedic Surgery
DX: M25.461 Effusion, right knee (principal)
CPT/HCPCS: 73721

== ENCOUNTER 2023-08-09 10:22 | Outpatient (AMB) | payer OTHER, SELFPAY ==
--- NOTE | 2023-08-09 10:42 | A.OFFVIS_ITS ---
Intake Intake Visit Reasons: OV - MRI Review Right Knee Intake Note: Ginny is a 53 year old female who presents today with her daughter for a Right knee MRI review Allergies omeprazole Allergy (Intermediate, Verified 06/17/23 09:16) dyspnea/rash pantoprazole Allergy (Intermediate, Verified 06/17/23 09:16) Rash propolis (bee glue) Allergy (Intermediate, Verified 06/17/23 09:16) Rash HPI OV - MRI Review Right Knee HPI Details Ginny is a 53 year old woman who returns for an MRI review of her right knee pain. She says her pain has mostly resolved following her injection on 05/31/23, and she is able to engage in normal daily activities. She has some pain and weakness when using stairs, but says this is tolerable. She has known right knee OA. [facility] Medical History Fracture of distal humerus GERD (gastroesophageal reflux disease) HTN (hypertension) Medial meniscus tear Diabetes Surgical History History of surgical removal of meniscus of knee S/P excision of lipoma History of esophagogastroduodenoscopy (EGD) H/O colonoscopy Family History Brother Diabetes Mother Diabetes Social History Household Members: Spouse and Children Housing: House Are you a primary daycare provider to a significant other at home: No Do you presently have visiting nurse or other home services: No Alcohol intake: never Patient Tobacco Use Status: Never used Tobacco Current occupational status: employed Current occupation: rt handed Review of Systems Const All systems reviewed & are unremarkable except as noted in HPI and below Physical Exam Const General: no acute distress, alert and awake Orientation/consciousness: patient oriented x3 HEENT Head: Yes normocephalic and Yes atraumatic Eyes EOM: EOMs intact bilaterally Resp Effort & Inspection: normal respiratory effort and able to speak in complete sentences Cardio Jugular venous distension: no JVD Skin General skin exam: turgor normal Rashes: no rashes Neuro General: patient oriented x3 Extrem Other: Right Knee: No effusion TTP medial compartment Full ROM Psych Appearance: grossly normal Affect: normal affect Attitude: cooperative Results Reviewed Results Reviewed: I personally reviewed relevant MR images 1. Complete radial tear of the medial meniscus posterior root measuring 1.5 cm in ML dimension with an oblique inner margin tear extending through the medially extruded posterior horn and body. 2. Edema adjacent to the medial collateral ligament which may be related to the meniscal tear or indicate a grade 1 sprain. 3. Mild patellofemoral and medial compartment osteoarthritis. Moderate joint effusion and Mcfarlane's cyst with mild synovitis. Focal synovitis versus loose body posterior to the posterior cruciate ligament measuring up to 0.9 cm. Assessment & Plan Assessment & Plan (1) Tear of medial meniscus of right knee: Code(s): S83.241A - Other tear of medial meniscus, current injury, right knee, initial encounter Plan: This is a 53 year old woman with a right knee medial meniscus tear, in a setting of PF OA. Her pain has improved and now occurs primarily when using stairs, which she says is tolerable. She found good relief from her injection on 05/31/23. I had a long discussion with her concerning her diagnosis and treatment options. As her pain has improved and she is not limited in her ADLs, I do not recommend surgery. I recommend she remain active as tolerated, be mindful to not push through pain, and weight management. No orthopedic intervention warranted. She will follow up in 3 months, prn. (2) Osteoarthritis of right knee: Code(s): M17.11 - Unilateral primary osteoarthritis, right knee (3) Diabetes: Comment: taking metformin only Code(s): E11.9 - Type 2 diabetes mellitus without complications Plan Scribed for Randy Lee MD by Diallo Harmon, medical reimbursement manager, on 08/09/23 at 10:55 AM, EST. Coding Level of Care Code Est Pt Level 4 (76662) Diagnoses Tear of medial meniscus of right knee S83.241A Osteoarthritis of right knee M17.11 Diabetes E11.9
== END 2023-08-09 10:59 | disposition home or self-care (01) ==
PROVIDERS: PCP Physician Assistant Medical; Visit Provider Orthopaedic Surgery
DX: S83.241A Other tear of medial meniscus, current injury, right knee, initial encounter (principal); M17.11 Unilateral primary osteoarthritis, right knee; E11.9 Type 2 diabetes mellitus without complications
CPT/HCPCS: 99213

== ENCOUNTER → 2023-08-09 10:22 | Outpatient (BNVA) | payer OTHER, SELFPAY | PROVIDERS: PCP Physician Assistant Medical; Visit Provider Orthopaedic Surgery ==

== ENCOUNTER 2023-09-06 11:52 | Day surgery (SDC) | payer OTHER, SELFPAY ==
[2023-09-02 12:36] VITALS: BMI 40.7
--- NOTE | 2023-09-03 10:22 | P.CONAN_ITS ---
Documented by User: Pratibha Butcher NP 09/03/23 10:23 HPI - Anesthesia Eval Consult details Narrative: 53yo F for Upper Endoscopy and Colonoscopy PMFSH Active Problems Active Problems: All Active Problems (Updated 08/09/23 @ 10:54 by Diallo Harmon) Tear of medial meniscus of right knee (Acute) Diabetes (Acute) Knee effusion, right (Acute) Hepatic steatosis (Acute) Abdominal cramping (Acute) Upper abdominal pain (Acute) GERD (gastroesophageal reflux disease) (Acute) Morbid obesity (Acute) Osteoarthritis of right knee (Acute) Osteoarthritis of left knee (Acute) Past Medical History Medical History Fracture of distal humerus GERD (gastroesophageal reflux disease) HTN (hypertension) Medial meniscus tear Diabetes Family History Family History Brother Diabetes Mother Diabetes Family history of problems with anesthesia: No Surgical History Surgical History History of surgical removal of meniscus of knee S/P excision of lipoma History of esophagogastroduodenoscopy (EGD) H/O colonoscopy History of Problems with Anesthesia: No Social History Social History Household Members: Spouse and Children Housing: House Are you a primary personal care service provider to a significant other at home: No Do you presently have visiting nurse or other home services: No Alcohol intake: never Patient Tobacco Use Status: Never used Tobacco Use of substances other than those prescribed or required for medical reasons: No Are you DNR?: No Advance Directives: No Advance Directives Information Provided: Yes Recently lost weight without trying: No Eating poorly because of decreased appetite: No Nutrition Risks: Acute nausea or vomiting x1 week Current occupational status: employed Current occupation: rt handed Meds Allergies Allergy/AdvReac Type Severity Reaction Status Date / Time omeprazole Allergy Intermediate dyspnea/arnold Verified 06/17/23 09:16 h pantoprazole Allergy Intermediate Rash Verified 06/17/23 09:16 propolis (bee glue) Allergy Intermediate Rash Verified 06/17/23 09:16 Home Medications Medication Instructions Recorded Confirmed Last Taken Type metformin 500 mg tablet,extended 1,000 mg PO BID 10/15/22 05/31/23 Unknown History release 24 hr chlorthalidone 25 mg tablet 25 mg PO DAILY 03/12/23 05/31/23 Unknown History meloxicam 15 mg tablet 15 mg PO DAILY 06/17/23 Unknown History valsartan 80 mg tablet 80 mg PO DAILY 06/17/23 Unknown History Exam Height,Weight and Vital Signs: Height 5 ft 3 in Weight 104.326 kg Assessment and Plan Assessment Anesthesia Assessment: Chart Reviewed Final Anesthetic Review Family History of Problems with Anesthesia: No History of Problems with Anesthesia: No Documented by User: Leidy Herring MD 09/06/23 13:57 PMFSH Past Medical History Medical History Fracture of distal humerus GERD (gastroesophageal reflux disease) HTN (hypertension) Medial meniscus tear Diabetes Family History Family History Brother Diabetes Mother Diabetes Surgical History Surgical History History of surgical removal of meniscus of knee S/P excision of lipoma History of esophagogastroduodenoscopy (EGD) H/O colonoscopy Social History Social History Household Members: Spouse and Children Housing: House Are you a primary personal care service provider to a significant other at home: No Do you presently have visiting nurse or other home services: No Alcohol intake: never Patient Tobacco Use Status: Never used Tobacco Use of substances other than those prescribed or required for medical reasons: No Are you DNR?: No Advance Directives: No Advance Directives Information Provided: Yes Recently lost weight without trying: No Eating poorly because of decreased appetite: No Nutrition Risks: Acute nausea or vomiting x1 week Current occupational status: employed Current occupation: rt handed Meds Allergies Allergy/AdvReac Type Severity Reaction Status Date / Time omeprazole Allergy Intermediate dyspnea/arnold Verified 06/17/23 09:16 h pantoprazole Allergy Intermediate Rash Verified 06/17/23 09:16 propolis (bee glue) Allergy Intermediate Rash Verified 06/17/23 09:16 Home Medications Medication Instructions Recorded Confirmed Last Taken Type metformin 500 mg tablet,extended 1,000 mg PO BID 10/15/22 05/31/23 Unknown History release 24 hr chlorthalidone 25 mg tablet 25 mg PO DAILY 03/12/23 05/31/23 Unknown History meloxicam 15 mg tablet 15 mg PO DAILY 06/17/23 Unknown History valsartan 80 mg tablet 80 mg PO DAILY 06/17/23 Unknown History Assessment and Plan Assessment Anesthesia Assessment: Anesthesia Plan Discussed Final Anesthetic Review NPO: Yes ASA Class: III Final Preanesthetic Review: No Changes in Pt Med Stat, Meds/Allgs Chart Reviewed and Consent Obtained/Reviewed Patient Risk: Intermediate Procedure Risk: Intermediate Anesthetic Plan Anesthetic Plan: MAC: Disposition: Standard PACU
[2023-09-06 13:01] VITALS: BMI 39.9
[2023-09-06 13:15] VITALS: BP 140/77; PULSE 77; RESP 20; TEMP 36.4; O2SAT 93
[2023-09-06 13:20] VITALS: O2SAT 96
[2023-09-06 13:22] LABS: Glucose, Whole Blood 141 mg/dL (60-115)
[2023-09-06] MEDS: Lactated Ringers 1,000 ML 100 ML IVCONT (13:38)
--- NOTE | 2023-09-06 13:57 | MHC.SHP ---
Pre-Procedural Eval Section A Date of Service: 09/06/23 The patient is an INPATIENT: No The History & Physical has been completed within 30 days and I have reviewed it.: No Section B Chief Complaint: Colon cancer screening, abdominal pain Relevant Family History (Specify if Yes): No Relevant Social History: None Present Medications: see Short Stay Collaborative assessment Medical History: Significant History (Fracture of distal humerus GERD (gastroesophageal reflux disease) HTN (hypertension) Medial meniscus tear Diabetes) History of Previous Operations: Relevant previous surgery/procedure and date(s) (History of surgical removal of meniscus of knee S/P excision of lipoma History of esophagogastroduodenoscopy (EGD) H/O colonoscopy) Allergies: Allergies Allergy/AdvReac Type Severity Reaction Status Date / Time omeprazole Allergy Intermediate dyspnea/arnold Verified 06/17/23 09:16 h pantoprazole Allergy Intermediate Rash Verified 06/17/23 09:16 propolis (bee glue) Allergy Intermediate Rash Verified 06/17/23 09:16 Review of Systems Sugical H&P ROS: Negative: Constitution, Cardiovascular, Respiratory and Gastrointestinal Exam Surgical H&P Exam: Normal: Heart, Normal: Lungs, Normal: Extremities and Normal: Abdomen Plan Diagnosis/Plan: Unchanged I have reviewed the history and physical and performed a pertinent physical examination on my patient. No changes have occurred unless specified. Time Spent With Patient Time: Total time managing care of this patient today ____ minutes.
--- NOTE | 2023-09-06 15:17 | W.PM.OPN ---
Operative Note Operative Note Date of Service: 09/06/23 Narrative: FLEXIBLE TRANSORAL UPPER GASTROINTESTINAL ENDOSCOPY WITH BIOPSIES AND COLONOSCOPY TILL CECUM WITH BIOPSIES Pre-op diagnosis: Colon cancer screening, GERD, abdominal pain, abnormal upper GI Post-op diagnosis: Esophagitis, gastritis, duodenitis, diverticulosis, hemorrhoids? Endoscopist:? Maite Shah MD Anesthesia:?MAC UPPER ENDOSCOPY Consent: Indications for the procedure and potential complications of bleeding, perforation, reaction to medications and missed diagnosis were discussed with the patient and informed consent was obtained. Instrument: Olympus GIF H 190 mid size upper endoscope Monitoring: Vital signs and clinical assessment, continuous EKG monitoring, Pulse oximetry, Carbon Dioxide monitoring and blood pressure monitoring were done throughout the procedure. Procedure: The patient was placed in the left lateral decubitis position and pre-procedure medications were administered and a bite block was placed. The endoscope was inserted into the mouth and advanced under direct vision to the third part of duodenum. A careful inspection was made as the upper endoscope was withdrawn including a retroflexed examination of the proximal stomach; Findings and interventions are described below. Findings: Larynx: Normal Esophagus: GE junction at 37 cms. A single 1 cms erosion at the GE jucntion. No Olmstead's. Stomach: Mild diffuse gastric erythema - no ulcers or erosions were visualized. Biopsies were obtained from the antrum and body of the stomach. Grade 2 flap valve on retroflexed examination of the cardia. Duodenum: Normal bulb and descending duodenum. Biopsies were obtained from 3rd part of the duodenum to check for celiac sprue Intervention: Biopsies as noted above COLONOSCOPY PROCEDURE NOTE Consent: Indications for the procedure and potential complications of bleeding, perforation, reaction to medications and missed diagnosis were discussed with the patient and informed consent was obtained. Instrument: Olympus PCF H 190 L variable stiffness pediatric colonoscope Monitoring: Vital signs and clinical assessment, intermittent blood pressure monitoring, continuous EKG monitoring, Pulse oximetry and Carbon Dioxide monitoring were done throughout the procedure. Colon withdrawl time was 19 minutes. Procedure: The patient was placed in the left lateral decubitis position and pre-procedure medications were administered. After a digital rectal examination of the ano-rectum, the video colonoscope was inserted into the rectum and advanced through the colon to the cecum. The colonoscope was slowly withdrawn in a retrograde panoramic fashion and the colon mucosa was carefully examined including a retroflexed view of the rectum. Findings and interventions are described below. Procedure Difficulty: Colon was long and tortuous and there was spasm and some loop formation Findings: Terminal Ileum: Not evaluated Cecum: Normal Ascending Colon: A fold versus inverted diverticulum in the proximal AC - biopsied. Moderate diverticulosis throughout the entire colon Transverse Colon: Moderate diverticulosis throughout the entire colon Descending Colon: Moderate diverticulosis throughout the entire colon Sigmoid Colon: Moderate diverticulosis Rectum: Normal Ano-rectum: Small internal hemorrhoids Colon preparation: Good after some irrigation Impression and Post Procedure Diagnosis: Endoscopy Findings: ESOPHAGUS: A single 1 cms erosion at the GE jucntion. No Olmstead's. STOMACH: Mild diffuse gastric erythema - no ulcers or erosions were visualized. Biopsies were obtained from the antrum and body of the stomach. DUODENUM: Normal - biopsied to check for celiac sprue Colonoscopy Findings: No polyps were detected A fold versus inverted diverticulum in the proximal AC - biopsied. Moderate diverticulosis throughout the entire colon Small hemorrhoids on retroflexed exam. Plan: Await pathology results Patient has an appointment on 09/21/23 in the GI Clinic with Nela Harry NP. Repeat Colonoscopy interval based on path results - in 10 years if biopsies are normal. Above findings were reviewed with the patient and GERD and diverticulosis handouts were given in the discharge area BIOPSIES SHOWED: A. Small bowel, biopsy: Small intestinal mucosa within normal limits; negative for celiac disease. B. Stomach, antrum, biopsy: Antral-type and oxyntic mucosa with mild chronic inactive inflammation; no Helicobacter organisms seen. C. Stomach, body, biopsy: Oxyntic mucosa with mild chronic inactive inflammation; no Helicobacter organisms seen. D. Colon, ascending fold, biopsy: Colonic mucosa with mild surface hyperplastic changes
[2023-09-06 15:18] VITALS: BP 103/53; PULSE 73; RESP 14; TEMP 36.7; O2SAT 99
[2023-09-06 15:33] VITALS: BP 117/60; PULSE 69; RESP 16; TEMP 36.8; O2SAT 98
== END 2023-09-06 15:52 | disposition home or self-care (01) ==
PROVIDERS: PCP Physician Assistant Medical; Visit Provider Internal Medicine Gastroenterology
PROC: (CPT 43239; principal; 2023-09-06 13:40)
DX: K22.10 Ulcer of esophagus without bleeding (principal); K29.70 Gastritis, unspecified, without bleeding; K29.80 Duodenitis without bleeding; K21.9 Gastro-esophageal reflux disease without esophagitis; K76.0 Fatty (change of) liver, not elsewhere classified; E66.01 Morbid (severe) obesity due to excess calories; Z68.41 Body mass index [BMI] 40.0-44.9, adult; Z12.11 Encounter for screening for malignant neoplasm of colon; K56.2 Volvulus; K57.30 Diverticulosis of large intestine without perforation or abscess without bleeding; K64.8 Other hemorrhoids; E11.9 Type 2 diabetes mellitus without complications; I10 Essential (primary) hypertension; Z79.84 Long term (current) use of oral hypoglycemic drugs; Z79.899 Other long term (current) drug therapy
CPT/HCPCS: 43239; 45380; 82947; 88305; 88342; J2704

== ENCOUNTER → 2023-09-06 11:52 | Outpatient (BNV) | payer OTHER, SELFPAY | PROVIDERS: PCP Physician Assistant Medical; Visit Provider Internal Medicine Gastroenterology | DX: Z12.11 Encounter for screening for malignant neoplasm of colon (principal); K21.00 Gastro-esophageal reflux disease with esophagitis, without bleeding; K29.90 Gastroduodenitis, unspecified, without bleeding; K57.30 Diverticulosis of large intestine without perforation or abscess without bleeding; K64.8 Other hemorrhoids; D12.2 Benign neoplasm of ascending colon | CPT/HCPCS: 43239; 45380 ==

== ENCOUNTER 2023-09-21 09:22 | Outpatient (AMB) | payer OTHER, SELFPAY ==
--- NOTE | 2023-09-21 09:32 | MHC.OFFVIS ---
Intake Vital Signs 09/21/23 10:00 Height 5 ft 3 in Weight 233 lb 11.04 oz BMI 41.4 BP 127/65 Blood Pressure Location Rt brachial Position Sitting Pulse 68 Intake Visit Reasons: s/P [place], EGD; Dr. Shah Intake Note: Patient presents to in office visit today postoperatively s/p colonoscopy and EGD. CC: Patient returns s/p colonoscopy and EGD with Dr. Shah on 09/06/23. Varnisher Required: Yes Varnisher Name: daugther Accompanied by: Daughter Allergies pantoprazole Allergy (Intermediate, Verified 09/21/23 10:04) Rash propolis (bee glue) Allergy (Intermediate, Verified 09/21/23 10:04) Rash esomeprazole Allergy (Verified 09/21/23 10:04) Rash Medication List - Last Reconciled 09/21/23 by TERI Boudreaux chlorthalidone 25 mg PO DAILY dicyclomine 10 mg PO QID empagliflozin (Jardiance) 10 mg PO DAILY famotidine (Pepcid) 20 mg PO BEDTIME lansoprazole 30 mg PO DAILY metformin ER 1,000 mg PO BID valsartan 80 mg PO DAILY HPI s/P [place], EGD; Dr. Shah HPI Details Assessment & Plan (1) GERD (gastroesophageal reflux disease): Code(s): K21.9 - Gastro-esophageal reflux disease without esophagitis Plan: Citizen [place] # daughter translates per patient request We review the UGI and since it shows erosions I encourage the use of the lansoprazole - she had stopped taking it r/t I was not feeling HB. This is silke true since she takes meloxicam. They have not yet heard to schedule EGD/colonoscopy. Message says that a message was left in February for call back but they may have left this in [place]cu[place] which could have confuse the issue. I am going to walk them down to make the appointment today since it will be important to evaluate her stomach to see if she really does have a row shins or how stents of the may be. She has not needed to use the dicyclomine which is good. However, she does still feel like ?something is in my stomach. ? this likely is the gastric erosions so again I really encouraged that she use the lansoprazole. Return office visit after the EGD/colonoscopy. (2) Upper abdominal pain: Code(s): R10.10 - Upper abdominal pain, unspecified (3) Abdominal cramping: Code(s): R10.9 - Unspecified abdominal pain (4) Hepatic steatosis: Comment: BASELINE LABS 12/08/22 Plt Count 246 Estimated GFR > 60 Random Glucose 130 H Ferritin 35 Total Bilirubin 0.6 GGT 37 H AST 18 ALT 22 Alkaline Phosphatase 45 Alpha Fetoprotein 3.3 Anti-Mitochondrial Ab NEGATIVE Anti-Smooth Muscle Ab <20 Hepatitis A IgM Ab Nonreactive Hep Bs Antigen Negative Hep Bs Antibody NONREACTIVE Hep B Core Total Ab Nonreactive Hepatitis C Ab (EIA) Nonreactive HIV 1&2 Ab/P24 Ag 4thGn Nonreactive She does not drink alcohol but she is obese CURRENT LABS .. ULTRASOUND OF THE ABDOMEN 11/06/22 FINDINGS: LIVER: The liver is normal in size. The liver contour is normal. There is diffuse increased liver parenchymal echogenicity, consistent with infiltrative hepatocellular disease. No definite focal lesion is seen, but evaluation is limited due to poor sound beam penetration through the coarse echogenic liver parenchyma. There is no intrahepatic biliary duct dilatation seen. GALLBLADDER: Normal. The gallbladder is physiologically distended without evidence of stones, sludge, polyps, wall thickening or pericholecystic fluid. COMMON BILE DUCT: Normal in caliber measuring 0.4 cm in diameter. US/US abdomen complete IMPRESSION: ? No acute findings to explain symptoms of abdominal pain. ? Increased hepatic echogenicity which can be seen in the setting of hepatic steatosis or underlying liver disease. .CONSIDER US WITH ELASTOGRAPHY NEXT survey INTERVAL Code(s): K76.0 - Fatty (change of) liver, not elsewhere classified Medications: Refilled lansoprazole 30 mg PO DAILY 30 caps 6RF K21.9 - Gastro-eso phageal reflux dis ease without esoph agitis EGD/COLONOSCOPY 09/07/23 Findings: Larynx: Normal Esophagus: GE junction at 37 cms. A single 1 cms erosion at the GE jucntion. No Olmstead's. Stomach: Mild diffuse gastric erythema - no ulcers or erosions were visualized. Biopsies were obtained from the antrum and body of the stomach. Grade 2 flap valve on retroflexed examination of the cardia. Duodenum: Normal bulb and descending duodenum. Biopsies were obtained from 3rd part of the duodenum to check for celiac sprue Findings: Terminal Ileum: Not evaluated Cecum: Normal Ascending Colon: A fold versus inverted diverticulum in the proximal AC - biopsied. Moderate diverticulosis throughout the entire colon Transverse Colon: Moderate diverticulosis throughout the entire colon Descending Colon: Moderate diverticulosis throughout the entire colon Sigmoid Colon: Moderate diverticulosis Rectum: Normal Ano-rectum: Small internal hemorrhoids Colon preparation: Good after some irrigation Impression and Post Procedure Diagnosis: Endoscopy Findings: ESOPHAGUS: [] STOMACH: [] DUODENUM: [] Colonoscopy Findings: No polyps were detected A fold versus inverted diverticulum in the proximal AC - biopsied. Moderate diverticulosis throughout the entire colon Small hemorrhoids on retroflexed exam. Plan: Await pathology results Patient has an appointment on 09/21/23 in the GI Clinic with Nela Harry NP. Repeat Colonoscopy interval based on path results - in 10 years if biopsies are normal. BIOPSY . Received: 09/07/23 Diagnosis A. Small bowel, biopsy: Small intestinal mucosa within normal limits; negative for celiac disease. B. Stomach, antrum, biopsy: Antral-type and oxyntic mucosa with mild chronic inactive inflammation; no Helicobacter organisms seen. C. Stomach, body, biopsy: Oxyntic mucosa with mild chronic inactive inflammation; no Helicobacter organisms seen. D. Colon, ascending fold, biopsy: Colonic mucosa with mild surface hyperplastic changes TODAY'S VISIT [place] # dtr translates per pt request. The colonoscopy should be repeated in 10 years. The procedure was well tolerated. The results were explained and the patient is agreeable to the follow-up interval as stated. The bowel pattern has returned to normal. Education was provided to tell any 1st degree relatives about their findings to be sure that they are screened by age 45. Educated that they will be put on a recall list when it is time for their repeat scope but should they move out of state or away from the hospital they will need to remember along with their primary to repeat the procedure in a timely fashion to avoid any adverse complications. She continues to have upper abdominal pain that tends to radiate to the left. She tolerated the procedures well we review the fact that there was an ulcer, although very small, at the gastroesophageal junction. This could be causing the pain. Apparently, she tried the dicyclomine but it was not helpful so this would seem to exclude the bowels as a cause of the pain. She says that she feels like the food gets stuck in the stomach? isn't going down and digesting. ? it is possible that she has some delay of her gastric emptying that is causing both severe reflux and this perceived feeling. She does not have nausea or vomiting. I do suggest that we could do a gastric emptying study but she would like to put this off until the summer months. For now I think will try adding a dose of famotidine at bedtime along with her morning lansoprazole. She buys the Pepcid [id number] and feels it is inexpensive enough so she declines a prescription but she will add this to her regimen. She asks if we can decrease the lansoprazole dose, but I let her know that this would not be rucker given the finding of an ulcer and the fact that this is generally the lowest dose of this medication. She understands. She is not having any adverse effects. Return office visit in 8 weeks to see if this has affected her pain. [facility] Medical History Fracture of distal humerus GERD (gastroesophageal reflux disease) HTN (hypertension) Medial meniscus tear Diabetes Surgical History History of surgical removal of meniscus of knee S/P excision of lipoma History of esophagogastroduodenoscopy (EGD) H/O colonoscopy Family History Brother Diabetes Mother Diabetes Social History Household Members: Spouse and Children Housing: House Are you a primary certified caregiver to a significant other at home: No Do you presently have visiting nurse or other home services: No Alcohol intake: never Patient Tobacco Use Status: Never used Tobacco Current occupational status: employed Current occupation: rt handed Review of Systems Const Denies fatigue, Denies fever(s), Denies night sweats, Denies poor appetite and Denies weight loss ENT Reports Normal hearing present, Denies dental pain, Denies dysphagia, Denies hearing loss, Denies mouth pain, Denies odynophagia, Denies throat swelling, Denies tongue swelling and Reports other (Dentition adequate) Card Reports no additional complaints Resp Reports no additional complaints GI Reports abdominal pain, Denies melena, Denies bloating, Denies hematochezia, Denies constipation, Denies GI cramping, Denies dysphagia, Denies excessive flatus, Reports early satiety, Reports heartburn, Denies diarrhea, Denies nausea, Denies odynophagia, Denies vomiting and Denies hematemesis Skin/Breast Denies pruritus, Denies lesions, Denies rash and Denies jaundice Neuro Reports Normal hearing present and Denies Abnormal speech present Endo Denies fatigue Aller/Immun Denies throat swelling and Denies tongue swelling Physical Exam Vital Signs: Last Vital Signs Pulse 68 09/21/23 10:00 BP 127/65 09/21/23 10:00 BMI result Body Mass Index 41.4 Const General: cooperative, no acute distress, well developed and well groomed Nutritional Appearance: well nourished and obese Orientation/consciousness: oriented to person, oriented to place and oriented to time Limitations: language barrier HEENT Head: Yes normocephalic and Yes atraumatic Eyes General: appearance normal, both eyes and all related structures Pupils: Equal, round and reactive pupils present Neck Neck: Yes normal visual inspection and Yes no lymphadenopathy Thyroid: Thyroid normal Resp Effort & Inspection: normal respiratory effort and able to speak in complete sentences Auscultation: clear to auscultation bilaterally Cardio Rate: regular rate Rhythm: regular rhythm Heart sounds: Normal, physiologic split S2 sound present Peripheral pulses: radial pulses present and posterior tibial pulses present GI Inspection: No distended, Yes Abdominal panniculus present and Yes obesity Palpation (GI): Soft to palpation, Tenderness to palpation present (GI) (Very mild) in the epigastrum and in the LUQ, no guarding, not rigid and No hepatosplenomegaly present Percussion: Yes normal to percussion Auscultation: normal bowel sounds Rectal Exam - Female: deferred Skin General skin exam: no rashes or lesions noted, turgor normal, skin not dry, no jaundice, No spider nevi and no striae Rashes: no rashes Nails: normal Neuro General: oriented to person, oriented to place and oriented to time Cranial nerves: Yes Equal, round and reactive pupils present and Yes Normal hearing present Speech: No Abnormal speech present Extrem General: Yes normal to inspection, No clubbing, No cyanosis and No edema Psych Appearance: grossly normal and well kempt Mental Status: mental status grossly normal Speech and movement: Normal speech and movement present Affect: normal affect Attitude: cooperative Thought process: Normal thought process present and not confabulating Thought content: Normal thought content present Insight: Fair insight present (Psych) Judgement: Fair judgement present (Psych) Assessment & Plan Assessment & Plan (1) GERD (gastroesophageal reflux disease): Code(s): K21.9 - Gastro-esophageal reflux disease without esophagitis (2) Upper abdominal pain: Code(s): R10.10 - Upper abdominal pain, unspecified (3) Hepatic steatosis: Comment: BASELINE LABS 12/08/22 Plt Count 246 Estimated GFR > 60 Random Glucose 130 H Ferritin 35 Total Bilirubin 0.6 GGT 37 H AST 18 ALT 22 Alkaline Phosphatase 45 Alpha Fetoprotein 3.3 Anti-Mitochondrial Ab NEGATIVE Anti-Smooth Muscle Ab <20 Hepatitis A IgM Ab Nonreactive Hep Bs Antigen Negative Hep Bs Antibody NONREACTIVE Hep B Core Total Ab Nonreactive Hepatitis C Ab (EIA) Nonreactive HIV 1&2 Ab/P24 Ag 4thGn Nonreactive She does not drink alcohol but she is obese CURRENT LABS .. ULTRASOUND OF THE ABDOMEN 11/06/22 FINDINGS: LIVER: The liver is normal in size. The liver contour is normal. There is diffuse increased liver parenchymal echogenicity, consistent with infiltrative hepatocellular disease. No definite focal lesion is seen, but evaluation is limited due to poor sound beam penetration through the coarse echogenic liver parenchyma. There is no intrahepatic biliary duct dilatation seen. GALLBLADDER: Normal. The gallbladder is physiologically distended without evidence of stones, sludge, polyps, wall thickening or pericholecystic fluid. COMMON BILE DUCT: Normal in caliber measuring 0.4 cm in diameter. US/US abdomen complete IMPRESSION: ? No acute findings to explain symptoms of abdominal pain. ? Increased hepatic echogenicity which can be seen in the setting of hepatic steatosis or underlying liver disease. .CONSIDER US WITH ELASTOGRAPHY NEXT survey INTERVAL Code(s): K76.0 - Fatty (change of) liver, not elsewhere classified Plan Citizen [place] # dtr translates per pt request. The colonoscopy should be repeated in 10 years. The procedure was well tolerated. The results were explained and the patient is agreeable to the follow-up interval as stated. The bowel pattern has returned to normal. Education was provided to tell any 1st degree relatives about their findings to be sure that they are screened by age 45. Educated that they will be put on a recall list when it is time for their repeat scope but should they move out of state or away from the hospital they will need to remember along with their primary to repeat the procedure in a timely fashion to avoid any adverse complications. She continues to have upper abdominal pain that tends to radiate to the left. She tolerated the procedures well we review the fact that there was an ulcer, although very small, at the gastroesophageal junction. This could be causing the pain. Apparently, she tried the dicyclomine but it was not helpful so this would seem to exclude the bowels as a cause of the pain. She says that she feels like the food gets stuck in the stomach? isn't going down and digesting. ? it is possible that she has some delay of her gastric emptying that is causing both severe reflux and this perceived feeling. She does not have nausea or vomiting. I do suggest that we could do a gastric emptying study but she would like to put this off until the summer months. For now I think will try adding a dose of famotidine at bedtime along with her morning lansoprazole. She buys the Pepcid [id number] and feels it is inexpensive enough so she declines a prescription but she will add this to her regimen. She asks if we can decrease the lansoprazole dose, but I let her know that this would not be rucker given the finding of an ulcer and the fact that this is generally the lowest dose of this medication. She understands. She is not having any adverse effects. Return office visit in 8 weeks to see if this has affected her pain. Consider getting labs to see how her fatty liver is doing and ultrasound elastography next visit. Medications: Refilled lansoprazole 30 mg PO DAILY 30 caps 6RF K21.9 - Gastro-esophageal reflux disease without esophagitis Discontinued dicyclomine Discontinued Reason: Doctor's Order 10 mg PO QID 120 caps 3RF R10.9 - Unspecified abdominal pain Coding Level of Care Code Est Pt Level 4 (03322) Diagnoses GERD (gastroesophageal reflux disease) K21.9 Upper abdominal pain R10.10 Hepatic steatosis K76.0
[2023-09-21 10:00] VITALS: BP 127/65; PULSE 68; BMI 41.4
== END 2023-09-21 10:41 | disposition home or self-care (01) ==
PROVIDERS: PCP Physician Assistant Medical; Visit Provider Nurse Practitioner
DX: K21.9 Gastro-esophageal reflux disease without esophagitis (principal); R10.10 Upper abdominal pain, unspecified; K76.0 Fatty (change of) liver, not elsewhere classified
CPT/HCPCS: 99214

== ENCOUNTER → 2023-09-21 09:22 | Outpatient (BNVA) | payer OTHER, SELFPAY | PROVIDERS: PCP Physician Assistant Medical; Visit Provider Nurse Practitioner ==

== ENCOUNTER 2023-11-16 09:27 | Outpatient (AMB) | payer OTHER, SELFPAY ==
--- NOTE | 2023-11-16 09:38 | MHC.OFFVIS ---
Intake Vital Signs 11/16/23 09:41 Height 5 ft 3 in Weight 233 lb 11.04 oz BMI 41.4 BP 132/61 Blood Pressure Location Lt brachial Position Sitting Pulse 75 Intake Visit Reasons: 8 week follow up esophageal ulcer, upper abd pain. Intake Note: Ginny presents in the office as a 8 week follow up for an esophageal ulcer and upper abd pains. CC: She states that this is just a f/u to check to see if she is feeling better after starting new medications. Allergies propolis (bee glue) Allergy (Intermediate, Verified 11/16/23 09:41) Rash omeprazole Allergy (Mild, Verified 11/16/23 09:42) Unknown esomeprazole Allergy (Verified 11/16/23 09:41) Rash HPI 8 week follow up esophageal ulcer, upper abd pain. HPI Details Assessment & Plan (1) GERD (gastroesophageal reflux disease): Code(s): K21.9 - Gastro-esophageal reflux disease without esophagitis (2) Upper abdominal pain: Code(s): R10.10 - Upper abdominal pain, unspecified (3) Hepatic steatosis: Comment: BASELINE LABS 12/08/22 Plt Count 246 Estimated GFR > 60 Random Glucose 130 H Ferritin 35 Total Bilirubin 0.6 GGT 37 H AST 18 ALT 22 Alkaline Phosphatase 45 Alpha Fetoprotein 3.3 Anti-Mitochondrial Ab NEGATIVE Anti-Smooth Muscle Ab <20 Hepatitis A IgM Ab Nonreactive Hep Bs Antigen Negative Hep Bs Antibody NONREACTIVE Hep B Core Total Ab Nonreactive Hepatitis C Ab (EIA) Nonreactive HIV 1&2 Ab/P24 Ag 4thGn Nonreactive She does not drink alcohol but she is obese CURRENT LABS .. ULTRASOUND OF THE ABDOMEN 11/06/22 FINDINGS: LIVER: The liver is normal in size. The liver contour is normal. There is diffuse increased liver parenchymal echogenicity, consistent with infiltrative hepatocellular disease. No definite focal lesion is seen, but evaluation is limited due to poor sound beam penetration through the coarse echogenic liver parenchyma. There is no intrahepatic biliary duct dilatation seen. GALLBLADDER: Normal. The gallbladder is physiologically distended without evidence of stones, sludge, polyps, wall thickening or pericholecystic fluid. COMMON BILE DUCT: Normal in caliber measuring 0.4 cm in diameter. US/US abdomen complete IMPRESSION: ? No acute findings to explain symptoms of abdominal pain. ? Increased hepatic echogenicity which can be seen in the setting of hepatic steatosis or underlying liver disease. .CONSIDER US WITH ELASTOGRAPHY NEXT survey INTERVAL Code(s): K76.0 - Fatty (change of) liver, not elsewhere classified Plan Citizen [place] # dtr translates per pt request. The colonoscopy should be repeated in 10 years. The procedure was well tolerated. The results were explained and the patient is agreeable to the follow-up interval as stated. The bowel pattern has returned to normal. Education was provided to tell any 1st degree relatives about their findings to be sure that they are screened by age 45. Educated that they will be put on a recall list when it is time for their repeat scope but should they move out of state or away from the hospital they will need to remember along with their primary to repeat the procedure in a timely fashion to avoid any adverse complications. She continues to have upper abdominal pain that tends to radiate to the left. She tolerated the procedures well we review the fact that there was an ulcer, although very small, at the gastroesophageal junction. This could be causing the pain. Apparently, she tried the dicyclomine but it was not helpful so this would seem to exclude the bowels as a cause of the pain. She says that she feels like the food gets stuck in the stomach? isn't going down and digesting. ? it is possible that she has some delay of her gastric emptying that is causing both severe reflux and this perceived feeling. She does not have nausea or vomiting. I do suggest that we could do a gastric emptying study but she would like to put this off until the summer months. For now I think will try adding a dose of famotidine at bedtime along with her morning lansoprazole. She buys the Pepcid [id number] and feels it is inexpensive enough so she declines a prescription but she will add this to her regimen. She asks if we can decrease the lansoprazole dose, but I let her know that this would not be rucker given the finding of an ulcer and the fact that this is generally the lowest dose of this medication. She understands. She is not having any adverse effects. Return office visit in 8 weeks to see if this has affected her pain. Consider getting labs to see how her fatty liver is doing and ultrasound elastography next visit. Medications: Refilled lansoprazole 30 mg PO DAILY 30 caps 6RF K21.9 - Gastro-eso phageal reflux dis ease without esoph agitis Discontinued dicyclomine Dis continued Reason: Doctor's Order 10 mg PO QID 120 caps 3RF R10.9 - Unspecifie d abdominal pain TODAY'S VISIT [place] # familly member translates per patient request. She says that her pain has greatly improved and only occurs very rarely now. The nausea still there but this has also improved quite a bit. She credits the medications for this. She tries to avoid foods that will aggravate her like acid he foods which is likely prudent. She asked how long she will have to take the medication and I advised her that unless she can lose a significant amount of weight and continue to modify her diet this may be a lifelong necessity. This especially true given the fact that she had erosive esophagitis that would predispose her to possible esophageal cancer. She is obese and we do discuss strategies to lose weight. Most of her appetite tends to happen in the evening. She is going to try protein shakes with fiber added to give her stomach more volume. She also takes a probiotic supplement and want to know about natural probiotic so we discuss things like yogurt, Dev, and come boot. However, can boot a gives her bad heartburn which I likely would expect. Return office visit in 3 months. REPLACED BY [facility] Medical History Fracture of distal humerus GERD (gastroesophageal reflux disease) HTN (hypertension) Medial meniscus tear Diabetes Surgical History History of surgical removal of meniscus of knee S/P excision of lipoma History of esophagogastroduodenoscopy (EGD) H/O colonoscopy Family History Brother Diabetes Mother Diabetes Social History Household Members: Spouse and Children Housing: House Are you a primary customer care representative to a significant other at home: No Do you presently have visiting nurse or other home services: No Alcohol intake: never Patient Tobacco Use Status: Never used Tobacco Current occupational status: employed Current occupation: rt handed Review of Systems Const Denies fatigue, Denies fever(s), Denies night sweats, Denies poor appetite and Denies weight loss ENT Reports Normal hearing present, Denies dental pain, Denies dysphagia, Denies hearing loss, Denies mouth pain, Denies odynophagia, Denies throat swelling, Denies tongue swelling and Reports other (Dentition adequate) Card Reports no additional complaints Resp Reports no additional complaints GI Details: Reports abdominal pain, Denies melena, Denies bloating, Denies hematochezia, Denies constipation, Denies GI cramping, Denies dysphagia, Denies excessive flatus, Denies early satiety, Reports heartburn, Denies diarrhea, Reports nausea, Denies odynophagia, Denies vomiting and Denies hematemesis Skin/Breast Denies pruritus, Denies lesions, Denies rash and Denies jaundice Neuro Reports Normal hearing present and Denies Abnormal speech present Endo Denies fatigue Aller/Immun Denies throat swelling and Denies tongue swelling Physical Exam Vital Signs: Last Vital Signs Pulse 75 11/16/23 09:41 BP 132/61 11/16/23 09:41 BMI result Body Mass Index 41.4 Const General: cooperative, no acute distress, well developed and well groomed Nutritional Appearance: well nourished and obese morbidly obese Orientation/consciousness: oriented to person, oriented to place and oriented to time Limitations: language barrier HEENT Head: Yes normocephalic and Yes atraumatic Eyes General: appearance normal, both eyes and all related structures Pupils: Equal, round and reactive pupils present Neck Neck: Yes normal visual inspection and Yes no lymphadenopathy Thyroid: Thyroid normal Resp Effort & Inspection: normal respiratory effort and able to speak in complete sentences Auscultation: clear to auscultation bilaterally Cardio Rate: regular rate Rhythm: regular rhythm Heart sounds: Normal, physiologic split S2 sound present Peripheral pulses: radial pulses present and posterior tibial pulses present GI Inspection: No distended, Yes Abdominal panniculus present and Yes obesity Palpation (GI): Soft to palpation, nontender, no guarding, not rigid and No hepatosplenomegaly present Percussion: Yes normal to percussion Auscultation: normal bowel sounds Rectal Exam - Female: deferred Skin General skin exam: no rashes or lesions noted, turgor normal, skin not dry, no jaundice, No spider nevi and no striae Rashes: no rashes Nails: normal Neuro General: oriented to person, oriented to place and oriented to time Cranial nerves: Yes Equal, round and reactive pupils present and Yes Normal hearing present Speech: No Abnormal speech present Extrem General: Yes normal to inspection, No clubbing, No cyanosis and No edema Psych Appearance: grossly normal and well kempt Mental Status: mental status grossly normal Speech and movement: Normal speech and movement present Affect: normal affect Attitude: cooperative Thought process: Normal thought process present and not confabulating Thought content: Normal thought content present Insight: Fair insight present (Psych) Judgement: Fair judgement present (Psych) Assessment & Plan Assessment & Plan (1) Upper abdominal pain: Code(s): R10.10 - Upper abdominal pain, unspecified (2) GERD (gastroesophageal reflux disease): Code(s): K21.9 - Gastro-esophageal reflux disease without esophagitis (3) Abdominal cramping: Code(s): R10.9 - Unspecified abdominal pain (4) Hepatic steatosis: Comment: GIVEN THAT THE PATIENT'S TRANSAMINASES ARE NORMAL THE PRIMARY CAN MONITOR THIS AT 6 MONTH INTERVALS AND RETURN THEM TO OUR SERVICE IF THEY BECOME GREATER THAN 3 TIMES THE UPPER NORMAL LIMIT. BASELINE LABS 12/08/22 Plt Count 246 Estimated GFR > 60 Random Glucose 130 H Ferritin 35 Total Bilirubin 0.6 GGT 37 H AST 18 ALT 22 Alkaline Phosphatase 45 Alpha Fetoprotein 3.3 Anti-Mitochondrial Ab NEGATIVE Anti-Smooth Muscle Ab <20 Hepatitis A IgM Ab Nonreactive Hep Bs Antigen Negative Hep Bs Antibody NONREACTIVE Hep B Core Total Ab Nonreactive Hepatitis C Ab (EIA) Nonreactive HIV 1&2 Ab/P24 Ag 4thGn Nonreactive She does not drink alcohol but she is obese CURRENT LABS .. ULTRASOUND OF THE ABDOMEN 11/06/22 FINDINGS: LIVER: The liver is normal in size. The liver contour is normal. There is diffuse increased liver parenchymal echogenicity, consistent with infiltrative hepatocellular disease. No definite focal lesion is seen, but evaluation is limited due to poor sound beam penetration through the coarse echogenic liver parenchyma. There is no intrahepatic biliary duct dilatation seen. GALLBLADDER: Normal. The gallbladder is physiologically distended without evidence of stones, sludge, polyps, wall thickening or pericholecystic fluid. COMMON BILE DUCT: Normal in caliber measuring 0.4 cm in diameter. US/US abdomen complete IMPRESSION: ? No acute findings to explain symptoms of abdominal pain. ? Increased hepatic echogenicity which can be seen in the setting of hepatic steatosis or underlying liver disease. .CONSIDER US WITH ELASTOGRAPHY NEXT survey INTERVAL Code(s): K76.0 - Fatty (change of) liver, not elsewhere classified Plan [place] # familly member translates per patient request. She says that her pain has greatly improved and only occurs very rarely now. The nausea still there but this has also improved quite a bit. She credits the medications for this. She tries to avoid foods that will aggravate her like acid he foods which is likely prudent. She asked how long she will have to take the medication and I advised her that unless she can lose a significant amount of weight and continue to modify her diet this may be a lifelong necessity. This especially true given the fact that she had erosive esophagitis that would predispose her to possible esophageal cancer. She is obese and we do discuss strategies to lose weight. Most of her appetite tends to happen in the evening. She is going to try protein shakes with fiber added to give her stomach more volume. She also takes a probiotic supplement and want to know about natural probiotic so we discuss things like yogurt, [place], and come boot. However, can boot a gives her bad heartburn which I likely would expect. Return office visit in 3 months. Medications: New famotidine (Pepcid) 20 mg PO BEDTIME 30 tabs 6RF Refilled lansoprazole 30 mg PO DAILY 30 caps 6RF K21.9 - Gastro-esophageal reflux disease without esophagitis Coding Level of Care Code Est Pt Level 3 (82487) Diagnoses Upper abdominal pain R10.10 GERD (gastroesophageal reflux disease) K21.9 Abdominal cramping R10.9 Hepatic steatosis K76.0
[2023-11-16 09:41] VITALS: BP 132/61; PULSE 75; BMI 41.4
== END 2023-11-16 09:58 | disposition home or self-care (01) ==
PROVIDERS: PCP Physician Assistant Medical; Visit Provider Nurse Practitioner
DX: R10.10 Upper abdominal pain, unspecified (principal); K21.9 Gastro-esophageal reflux disease without esophagitis; R10.9 Unspecified abdominal pain; K76.0 Fatty (change of) liver, not elsewhere classified
CPT/HCPCS: 99213

== ENCOUNTER → 2023-11-16 09:27 | Outpatient (BNVA) | payer OTHER, SELFPAY | PROVIDERS: PCP Physician Assistant Medical; Visit Provider Nurse Practitioner ==

== ENCOUNTER 2024-02-07 09:26 | Outpatient (AMB) | payer OTHER, SELFPAY ==
--- NOTE | 2024-02-07 09:33 | MHC.OFFVIS ---
Vital Signs 02/07/24 09:38 Height 5 ft 3 in Weight 233 lb BMI 41.3 Intake Visit Reasons: OV-Right Knee follow up-6 months Intake Note: Ginny is a 53 year old female who presents today for a new problem visit with complaints of left knee pain. In November she took a fall injuring the left knee, she landed on this. After this fall she was seen at an urgent care clinic where xrays of the left elbow and left knee were taken. She reports that she had a farcture of the left elbow, but recieved no treatment for the left knee. hx of s/p Left MMT meniscectomy and chondroplasty 03/03/22. Allergies propolis (bee glue) Allergy (Intermediate, Verified 11/16/23 09:41) Rash omeprazole Allergy (Mild, Verified 11/16/23 09:42) Unknown esomeprazole Allergy (Verified 11/16/23 09:41) Rash HPI HPI OV-Right Knee follow up-6 months: Details: This is a 53-year-old woman who comes in today with left knee and left elbow discomfort. She injured these about 3 months ago in a fall. Radiographs at the time and an outside hospital showed a small piece of bone in left elbow of unknown origin but her left elbow does bother her anymore. She is able to range it fully. Affect to her left knee she has improving ambulatory capacity but still with discomfort feels like it swells up occasionally. [facility] Medical History Fracture of distal humerus GERD (gastroesophageal reflux disease) HTN (hypertension) Medial meniscus tear Diabetes Surgical History History of surgical removal of meniscus of knee S/P excision of lipoma History of esophagogastroduodenoscopy (EGD) H/O colonoscopy Family History Brother Diabetes Mother Diabetes Social History Household Members: Spouse and Children Housing: House Are you a primary managed care analyst to a significant other at home: No Do you presently have visiting nurse or other home services: No Alcohol intake: never Patient Tobacco Use Status: Never used Tobacco Current occupational status: employed Current occupation: rt handed Physical Exam Vital Signs: BMI result Body Mass Index 41.3 Extrem Other: Mild right knee effusion Tenderness to palpation medial joint line Full range of motion Full range of motion left elbow Results Reviewed Results Reviewed: I personally reviewed relevant radiographs. Outside radiographs demonstrate medial compartment osteoarthritis of the left knee. Otherwise no acute bony injury. Outside radiographs of the left elbow demonstrate small bony ossicle over the radiocapitellar region. This may represent coronoid fracture but no identifiable donor site Assessment & Plan Assessment & Plan (1) Injury of left elbow: Code(s): S59.902A - Unspecified injury of left elbow, initial encounter Category: Medical Plan: No pain left elbow. Full range of motion. No further intervention warranted. (2) Osteoarthritis of left knee: Code(s): M17.12 - Unilateral primary osteoarthritis, left knee Category: Medical Plan: I discussed treatment options for her left knee. We discussed injections versus continued activity as tolerated. At this point in time given her diabetes and the fact that she is improving she will abstain from intervention. I will see her back 3 months' time. Coding Level of Care Code Est Pt Level 4 (79603) Diagnoses Injury of left elbow S59.902A Osteoarthritis of left knee M17.12
[2024-02-07 09:38] VITALS: BMI 41.3
== END 2024-02-07 10:22 | disposition home or self-care (01) ==
PROVIDERS: PCP Physician Assistant Medical; Visit Provider Orthopaedic Surgery
DX: S59.902A Unspecified injury of left elbow, initial encounter (principal); M17.12 Unilateral primary osteoarthritis, left knee
CPT/HCPCS: 99213

== ENCOUNTER → 2024-02-07 09:26 | Outpatient (BNVA) | payer OTHER, SELFPAY | PROVIDERS: PCP Physician Assistant Medical; Visit Provider Orthopaedic Surgery ==

== ENCOUNTER 2024-05-08 09:42 | Outpatient (AMB) | payer OTHER, SELFPAY ==
[2024-05-08 09:44] VITALS: BMI 41.3
--- NOTE | 2024-05-08 09:44 | A.OFFVIS_ITS ---
Vital Signs 05/08/24 09:44 Height 5 ft 3 in Weight 233 lb BMI 41.3 Intake Visit Reasons: OV-Left Knee Injury-follow up Intake Note: Danielle is a 54 year old female who presents today for a follow up of her right knee. She is s/p Left MMT meniscectomy and chondroplasty 03/03/22 and took a fall back in November. Patient reports that she is doing well, but she is still having pain with prolonged ambulation and stairs. Pain is felt mostly in the morning and does improve through the day. Allergies propolis (bee glue) Allergy (Intermediate, Verified 11/16/23 09:41) Rash omeprazole Allergy (Mild, Verified 11/16/23 09:42) Unknown esomeprazole Allergy (Verified 11/16/23 09:41) Rash HPI HPI OV-Left Knee Injury-follow up: Details: Patient returns today for left knee pain. She was seen previously and was doing okay. She continues however to have pain and we discussed injections at last visit but deferred. Today she is more interested in injections. [facility] Medical History Fracture of distal humerus GERD (gastroesophageal reflux disease) HTN (hypertension) Medial meniscus tear Diabetes Surgical History History of surgical removal of meniscus of knee S/P excision of lipoma History of esophagogastroduodenoscopy (EGD) H/O colonoscopy Family History Brother Diabetes Mother Diabetes Social History Household Members: Spouse and Children Housing: House Are you a primary resident care aid to a significant other at home: No Do you presently have visiting nurse or other home services: No Alcohol intake: never Patient Tobacco Use Status: Never used Tobacco Current occupational status: employed Current occupation: rt handed Physical Exam Vital Signs: BMI result Body Mass Index 41.3 Extrem Other: Mild right knee effusion Tenderness to palpation medial joint line Full range of motion Full range of motion left elbow Office Procedures Joint Injection/Aspiration Joint Injection/Aspiration Details: Injected 1 mL of Decadron and 3 mL 1% lidocaine and 3 mL of 0.25% Marcaine. Site was prepped using aseptic technique. Patient tolerated the procedure well. Primary Site: left knee Approach Used: anterolateral Coding - Large joint Procedure code (CPT) selection complete Assessment & Plan Assessment & Plan (1) Osteoarthritis of left knee: Code(s): M17.12 - Unilateral primary osteoarthritis, left knee Category: Medical Plan: This is a 54-year-old patient with osteoarthritis of the left knee. Her symptoms are persistent and not severe but significant enough to warrant an injection. I injected her left knee. She has a well controlled diabetic and understands that this will transiently increase her blood sugar. (2) Diabetes: Code(s): E11.9 - Type 2 diabetes mellitus without complications Category: Medical Plan: Hyperglycemic effects of steroids explained Coding Level of Care Code Est Pt Level 4 (85840) Diagnoses Osteoarthritis of left knee M17.12 Diabetes E11.9 CPT Codes Coding - Large joint: 69646 - Large joint ([id number])
== END 2024-05-08 10:24 | disposition home or self-care (01) ==
PROVIDERS: PCP Physician Assistant Medical; Visit Provider Orthopaedic Surgery
DX: M17.12 Unilateral primary osteoarthritis, left knee (principal); E11.9 Type 2 diabetes mellitus without complications
CPT/HCPCS: 20610; 99214

== ENCOUNTER → 2024-05-08 09:42 | Outpatient (BNVA) | payer OTHER, SELFPAY | PROVIDERS: PCP Physician Assistant Medical; Visit Provider Orthopaedic Surgery | DX: M17.12 Unilateral primary osteoarthritis, left knee (principal); E11.9 Type 2 diabetes mellitus without complications | CPT/HCPCS: 20610; J0665; J1100 ==

== ENCOUNTER 2025-07-05 09:23 | Outpatient (AMB) | payer OTHER, SELFPAY ==
--- NOTE | 2025-07-05 09:26 | MHC.OFFVIS ---
Vital Signs 07/05/25 09:32 Height 5 ft 3 in Weight 231 lb 7.766 oz BMI 41.0 BP 108/76 Blood Pressure Location Rt brachial Position Sitting Pulse 72 Pulse Source Pulse Oximeter Pulse Oximetry (%) 98 Oxygen Delivery Method Room Air Intake Visit Reasons: Hyperparathyroidism, Hypercalceria, DM Intake Note: NEW Patient presents today to establish treatment for Type 2 Diabetes Mellitus Hyperparathyroidism Hypercalceria: Last Diabetic eye exam was on: 12/2024, [facility], glasses were prescribed. Last Podiatry exam was on: Patient does not see a Occupational Therapy Program Director Most recent HbA1c: 6.0%, 07/05/2025 Random Glucose: 124 mg/dL Security Threat Analyst Required: Yes Security Threat Analyst Language: Faroese Security Threat Analyst Services: Security Threat Analyst Offered & Declined Security Threat Analyst Name: Daughter Accompanied by: Daughter Allergies propolis (bee glue) Allergy (Intermediate, Verified 07/05/25 09:37) Rash omeprazole Allergy (Mild, Verified 07/05/25 09:37) Unknown esomeprazole Allergy (Verified 07/05/25 09:37) Rash Medication List - Last Reconciled 07/05/25 by Tomasa Mora MD empagliflozin (Jardiance) 25 mg PO DAILY famotidine 20 mg PO BEDTIME PRN lansoprazole 30 mg PO DAILY meloxicam 15 mg PO DAILY PRN metformin ER 1,000 mg PO BID tirzepatide (Mounjaro) mg subcut valsartan 80 mg PO DAILY HPI Comments Details: 55-year-old female coming in today for initial evaluation of type 2 diabetes mellitus and elevated PTH levels. Here with daughter Mary. Daughter doing interpretation for ukranian language Type 2 diabetes mellitus History of diabetes Diagnosed in March 2020, was found on regular blood work Most recent HbA1c: 6.0%, 07/05/2025 6.6% Prior therapy: Current regimen: Jardiance 25 mg daily (summer 2024 one yeast infection) Metformin 500x2 ER BID Mounjaro 2.5 mg weekly (started early may 2025, doesnt have refills since last dose 06/17/25) Denies any symptoms of hyperglycemia including polyphagia, polyuria, polydipsia. Denies any hypoglycemic symptoms. SMBG's didnt bring meter today , expresses confusion over how to check blood sugars Fasting readings by recall : 125, 105, 140 highest at bedtime by recall 105, 110, 100 mg.dl Random blood glucose : 124 mg /dl Vaccines: doesnt get flu vaccine Didnt get covid vaccine Doesnt think she ever got pneumoccoccal vaccine Complications Eye exam: Last eye exam was 12/2024, no retinopathy per patient , [facility] Neuropathy: no symptoms , doesnt see podiatry Kidney disease: no kidney disease EGFR 104, creatinine 0.62 from February 2025 urine microalbumin creatinine ratio less than 9 from February 2025 Macrovascular complications: No history of macrovascular complications. 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 Elevated PTH level Chart review shows blood work from March 2025 showed PTH of 69 (15-65 pg/mL), ionized calcium 5.3, blood work from February 2025 showed calcium of 10.6 with albumin of 4.5, corrected calcium would be 10.1. Kidney stones: none Fractures: left elbow 2022, fell on elbow, right elbow 2020, fell on steps Bone density: not done Family history: no family history of calcium problems or kidney stones Vitamin-D: 5000 units every other day started 1 week ago, takes it during winter months Calcium intake: none , milk : not often, cheese or yogurt : not often Physical exam General: sitting comfortably in no acute distress HEENT: normocephalic/atraumatic, Cardiac: normal heart sounds Pulm: normal breath sounds B/L, no added breath sounds Abd: not distended PFSH Medical History (Updated 07/05/25 @ 10:52 by Tomasa Mora MD) Dyslipidemia associated with type 2 diabetes mellitus Vitamin D deficiency Elevated parathyroid hormone Fracture of distal humerus GERD (gastroesophageal reflux disease) HTN (hypertension) Medial meniscus tear Diabetes Surgical History Hx of eye surgery History of surgical removal of meniscus of knee S/P excision of lipoma History of esophagogastroduodenoscopy (EGD) H/O colonoscopy Family History Brother Diabetes Mother Diabetes Social History Household Members: Spouse and Children Housing: House Are you a primary patient care associate to a significant other at home: No Do you presently have visiting nurse or other home services: No Alcohol intake: never Patient Tobacco Use Status: Never used Tobacco Current occupational status: employed Current occupation: rt handed Physical Exam Vital Signs: Last Vital Signs Pulse 72 07/05/25 09:32 BP 108/76 07/05/25 09:32 Pulse Ox 98 07/05/25 09:32 Oxygen Delivery Method Room Air 07/05/25 09:32 BMI result Body Mass Index 41.0 Results AMB Hemoglobin A1c AMB Hemoglobin A1c 6.0 % Last Edit by ELLEN Low on 07/05/25 09:52 Results Reviewed Results Reviewed: Laboratory Last Values Glucose (Clinic) 124 mg/dL (60-115) H 07/05/25 09:44 Hgb A1c (Clinic) 6.0 % (4.0-6.0) 07/05/25 09:50 Assessment & Plan Assessment & Plan (1) Diabetes: Code(s): E11.9 - Type 2 diabetes mellitus without complications Category: Medical Qualifiers: Diabetes mellitus type: type 2 Diabetes mellitus skilled nursing insulin use: without skilled nursing use Diabetes mellitus complication status: without complication Qualified Code(s): E11.9 - Type 2 diabetes mellitus without complications Plan: 55-year-old female here today for initial evaluation of type 2 diabetes mellitus without long-term insulin use without complications. She was diagnosed with diabetes in 2021 on regular blood work. A1c POC 07/05/2025 today at 6% which is down from 6.6% back in summer 2024. She is having some fasting elevated blood sugar readings. Mounjaro was just recently added to her regimen, which I agree with the is an excellent choice especially given her BMI of 41 kilogram/meters squared with current weight of 231 lb. However she did not get any refills from her PCP and has not taken injections for the past 2 weeks. At this point I have asked her to resume Mounjaro 2.5 mg weekly injection and continue her current regimen. Once she is done with the around 6 more injections of the 2.5 I have asked her to call the office and we can titrate it up to 5 mg weekly injection. She expresses a lot of confusion about checking blood sugars, she would benefit from some diabetes education. I have also asked her to bring her meter to all appointments she did not bring this today. Once she brings in the meter we can check what brand it is in send her supplies as well. Plan: - continue metformin 1000 mg b.i.d. extended release -continue Jardiance 25 mg daily -restart Mounjaro 2.5 mg weekly injection -let us know once you have had 6 more injections of the 2.5 mg, and we can up titrate it to 5 mg weekly injection -did foot education -diabetes education referral placed -continue to monitor blood sugars once or twice a day, targets given -up-to-date with eye appointment, no history of retinopathy -foot exam deferred today, no complaints of neuropathy symptoms (2) Dyslipidemia associated with type 2 diabetes mellitus: Code(s): E11.69 - Type 2 diabetes mellitus with other specified complication; E78.5 - Hyperlipidemia, unspecified Category: Medical Plan: LDL 114 mg/dL from summer 2024. Goal LDL would be less than 90 mg/dL. Plan: -start atorvastatin 20 mg daily at bedtime -plan to repeat lipid panel prior to next follow up in 4-5 months -discussed side effects of muscle aches and cramps, rare side effects of muscle toxicity and liver toxicity -we will also check liver panel prior to next follow up (3) Morbid obesity: Code(s): E66.01 - Morbid (severe) obesity due to excess calories Category: Medical Plan: Current weight 231 lb with BMI of 41 kilogram/meters squared. Also has metabolic dysfunction associated liver disease. Plan: -restart Mounjaro 2.5 mg weekly injection, with a plan for up titration in the near future -advised to walk 30 minutes 5 days a week (4) Elevated parathyroid hormone: Code(s): R79.89 - Other specified abnormal findings of blood chemistry Category: Medical Plan: Chart review shows blood work from March 2025 showed PTH of 69 (15-65 pg/mL), ionized calcium 5.3, blood work from February 2025 showed calcium of 10.6 with albumin of 4.5, corrected calcium would be 10.1. She barely has any calcium intake. PTH could be elevated as a cause of poor nutritional intake of calcium. No recent vitamin-D levels but per patient she is taking 5000 units every other day? She only takes it in the winter season and recently started taking it. I am not sure if she is correct about her dosing. I have asked her to bring all supplement bottles to next visit. At this time I have asked her to increase her calcium intake in the diet, no calcium supplements specially given concern for possible underlying primary hyperparathyroidism. Though her kidney function is normal no history of kidney stones. She has had some fractures, could possibly be fragility fractures but for now I will hold off on ordering a bone density scan. First I would like to repeat her levels with better nutritional intake of calcium. Plan: -ordered calcium, albumin, ionized calcium, phosphorus, magnesium, PTH, vitamin-D levels, creatinine to be done prior to next visit after improve nutritional intake of calcium -increase nutritional intake of calcium to incorporate 2-3 servings of calcium rich foods daily amounting up to roughly 1000 mg of calcium in diet Plan I spent 60 minutes in reviewing the record, seeing the patient and documenting in the medical record. Orders: Orders Comprehensive Met. Panel 10/22/25 Tomasa Mora MD E11.9 - Type 2 diabetes mellitus without complications, E55.9 - Vitamin D deficiency, unspecified, R79.89 - Other specified abnormal findings of blood chemistry Lipid Panel 10/22/25 Tomasa Mora MD E11.9 - Type 2 diabetes mellitus without complications, E55.9 - Vitamin D deficiency, unspecified, R79.89 - Other specified abnormal findings of blood chemistry Microalbumin, Random (w Creat) 10/22/25 Tomasa Mora MD E11.9 - Type 2 diabetes mellitus without complications, E55.9 - Vitamin D deficiency, unspecified, R79.89 - Other specified abnormal findings of blood chemistry Vitamin B12 10/22/25 Tomasa Mora MD E11.9 - Type 2 diabetes mellitus without complications, E55.9 - Vitamin D deficiency, unspecified, R79.89 - Other specified abnormal findings of blood chemistry Calcium 10/22/25 Tomsaa Mora MD E11.9 - Type 2 diabetes mellitus without complications, E55.9 - Vitamin D deficiency, unspecified, R79.89 - Other specified abnormal findings of blood chemistry Phosphorus 10/22/25 Tomasa Mora MD E11.9 - Type 2 diabetes mellitus without complications, E55.9 - Vitamin D deficiency, unspecified, R79.89 - Other specified abnormal findings of blood chemistry Vitamin D 25-OH Total 10/22/25 Tomasa Mora MD E11.9 - Type 2 diabetes mellitus without complications, E55.9 - Vitamin D deficiency, unspecified, R79.89 - Other specified abnormal findings of blood chemistry Calcium, Ionized 10/22/25 Tomasa Mora MD E11.9 - Type 2 diabetes mellitus without complications, E55.9 - Vitamin D deficiency, unspecified, R79.89 - Other specified abnormal findings of blood chemistry AMB Hemoglobin A1c Today Tomasa Mora MD E11.9 - Type 2 diabetes mellitus without complications Hemoglobin A1c 10/22/25 Tomasa Mora MD E11.9 - Type 2 diabetes mellitus without complications, E55.9 - Vitamin D deficiency, unspecified, R79.89 - Other specified abnormal findings of blood chemistry Albumin Level 10/22/25 Tomasa Mora MD E11.9 - Type 2 diabetes mellitus without complications, E55.9 - Vitamin D deficiency, unspecified, R79.89 - Other specified abnormal findings of blood chemistry Magnesium 10/22/25 Tomasa Mora MD E11.9 - Type 2 diabetes mellitus without complications, E55.9 - Vitamin D deficiency, unspecified, R79.89 - Other specified abnormal findings of blood chemistry Parathyroid Hormone Intact 10/22/25 Tomasa Mora MD E11.9 - Type 2 diabetes mellitus without complications, E55.9 - Vitamin D deficiency, unspecified, R79.89 - Other specified abnormal findings of blood chemistry Referrals Diabetes Education Referral Tomasa Mora MD E11.9 - Type 2 diabetes mellitus without complications Medications: New Jardiance (empagliflozin) 25 mg PO DAILY 30 tabs 7RF NS Tomasa Mora MD metformin ER 1,000 mg (2 x 500 mg) PO BID 120 tabs 8RF Tomasa Mora MD tirzepatide (Mounjaro) 2.5 mg (0.5 mL) subcut QWEEK 2 mL 7RF Tomasa Mora MD E11.9 - Type 2 diabetes mellitus without complications atorvastatin (Lipitor) 20 mg PO BEDTIME 30 tabs 7RF Tomasa Mora MD Changed From famotidine 20 mg PO BEDTIME 30 tabs 6RF To famotidine 20 mg PO BEDTIME PRN TERI Boudreaux Patient Instructions: Start atorvastatin 20 mg daily at bedtime If you have any side effects of severe muscle aches pains cramps, please let us know during office hours by calling our office Continue metformin extended-release 1000 mg twice daily (500 mg 2 tablets) Continue Jardiance 25 mg daily Continue Mounjaro 2.5 mg weekly injection, after you have taken 6 injections of the 2.5 mg, call our office during office hours to ask for up titration of the medication See tobacco prevention health educator, we will make this appointment today Continue to check blood sugars twice a day or at least once a day fasting and sometimes 2 hours after a meal Fasting blood sugars are supposed to be ideally between 90-110 mg/dL 2 hours post meal blood sugars should be less than 140 mg/dL Follow up with the eye doctor annually Check your feet daily looking for any signs of infection, drainage, redness, ulceration and seek medical attention if this occurs. Break in shoes gradually and do not wear open-toed shoes or walk stocking footed or barefooted. For your calcium problems Do not take any calcium supplements But start incorporating calcium rich foods in your diet such as milk yogurt cheese by taking 2-3 servings a day Before your next appointment with me do fasting blood work 2 weeks before this has been ordered Coding Level of Care Code New Pt Level 5 (44198) Diagnoses Type 2 diabetes mellitus without complication, without long-term current use of insulin E11.9 Diabetes mellitus type: type 2 Diabetes mellitus skilled nursing insulin use: without intermediate project manager use Diabetes mellitus complication status: without complication Dyslipidemia associated with type 2 diabetes mellitus E11.69; E78.5 Morbid obesity E66.01 Elevated parathyroid hormone R79.89 Time Spent (min) 60
[2025-07-05 09:32] VITALS: BP 108/76; PULSE 72; O2SAT 98; BMI 41.0
[2025-07-05 09:47] LABS: Glucose, Whole Blood 124 mg/dL (60-115)
== END 2025-07-05 10:38 | disposition home or self-care (01) ==
PROVIDERS: PCP Physician Assistant Medical; Visit Provider Student in an Organized Health Care Education/Training Program
DX: E11.9 Type 2 diabetes mellitus without complications (principal); E11.69 Type 2 diabetes mellitus with other specified complication; E66.01 Morbid (severe) obesity due to excess calories; Z68.41 Body mass index [BMI] 40.0-44.9, adult; E78.5 Hyperlipidemia, unspecified; R79.89 Other specified abnormal findings of blood chemistry
CPT/HCPCS: 99205

== ENCOUNTER → 2025-07-05 09:23 | Outpatient (BNVA) | payer OTHER, SELFPAY | PROVIDERS: PCP Physician Assistant Medical; Visit Provider Student in an Organized Health Care Education/Training Program | DX: E11.69 Type 2 diabetes mellitus with other specified complication (principal); E21.3 Hyperparathyroidism, unspecified; E78.5 Hyperlipidemia, unspecified; R79.89 Other specified abnormal findings of blood chemistry; E66.01 Morbid (severe) obesity due to excess calories; Z68.41 Body mass index [BMI] 40.0-44.9, adult | CPT/HCPCS: 82947; 83036 ==

== ENCOUNTER 2025-07-24 09:10 | Outpatient (AMB) | payer OTHER, SELFPAY ==
--- NOTE | 2025-07-24 09:42 | A.OFFVIS_ITS ---
Intake Intake Visit Reasons: DM Company Tanker Truck Driver Required: Yes Company Tanker Truck Driver Language: Lebanese Company Tanker Truck Driver Services: Company Tanker Truck Driver Offered & Declined Company Tanker Truck Driver Name: Pt's daughter Accompanied by: Daughter Allergies propolis (bee glue) Allergy (Intermediate, Verified 07/05/25 09:37) Rash omeprazole Allergy (Mild, Verified 07/05/25 09:37) Unknown esomeprazole Allergy (Verified 07/05/25 09:37) Rash HPI Comprehensive Diabetes Asmnt Most Recent Diabetes Results: Creatinine, (0.5-1.4) 0.66 mg/dL 12/08/22 BUN, (9-16) 13 mg/dL 12/08/22 Sodium, (135-145) 143 mmol/L 12/08/22 Potassium, (3.3-5.1) 4.5 mmol/L 12/08/22 Chloride, (96-108) 108 mmol/L 12/08/22 Carbon Dioxide, (22-29) 26 mmol/L 12/08/22 Calcium, (8.4-10.2) 10.0 mg/dL 12/08/22 AST, (5-31) 18 U/L 12/08/22 ALT, (0-31) 22 U/L 12/08/22 Total Protein, (6.5-8.0) 7.0 g/dL 12/08/22 Albumin, (3.5-5.0) 4.5 g/dL 12/08/22 [facility] Medical History (Updated 07/05/25 @ 10:52 by Tomasa Mora MD) Dyslipidemia associated with type 2 diabetes mellitus Vitamin D deficiency Elevated parathyroid hormone Fracture of distal humerus GERD (gastroesophageal reflux disease) HTN (hypertension) Medial meniscus tear Diabetes Surgical History Hx of eye surgery History of surgical removal of meniscus of knee S/P excision of lipoma History of esophagogastroduodenoscopy (EGD) H/O colonoscopy Family History Brother Diabetes Mother Diabetes Social History Household Members: Spouse and Children Housing: House Are you a primary director of healthcare systems to a significant other at home: No Do you presently have visiting nurse or other home services: No Alcohol intake: never Patient Tobacco Use Status: Never used Tobacco Current occupational status: employed Current occupation: rt handed Assessment & Plan Assessment & Plan (1) Dyslipidemia associated with type 2 diabetes mellitus: Code(s): E11.69 - Type 2 diabetes mellitus with other specified complication; E78.5 - Hyperlipidemia, unspecified Plan: Diabetes self-management education and support participation record Assessment/scale: 1= needs instructed? 2= needs review? 3= comprehend keep point? 4= demonstrates understanding/ competent? NC= Not Covered Topics Learning Objective: Initial visit Initial or post srvc Initial or post srvc Initial or post srvc Initial or post srvc Initial or post srvc Post srvc Comments Pre Edu-assessment/plan Outcome or reassess Outcome or reassess Outcome or reassess Outcome or reassess Outcome or reassess Outcome or reassess Diabetes pathophysiology 1 Healthy eating 1 Being active 1 Taking medication 1 Monitoring glucose 1 Acute complication 1 Chronic complicated 1 Lifestyle and healthy coping 1 Diabetes distress in support 1 ?Diabetes pathophysiology: ?Defined diabetes med identify own type of diabetes; list 3 options for treating diabetes Healthy eating: ?Described effect of type, amount and ?timing of food on blood glucose; list 3 methods for planning meal Being active: ?State effect of exercise on blood glucose level Taking medication: ?State effect of diabetes medications on diabetes; name diabetes medications taking, action and side effects Monitoring glucose: ?Identify recommended blood glucose targets and personal target Acute complication: ?List symptoms and treatment of hyper and hypoglycemia, DKA, sick day guidelines and guidelines for severe weather or situations of crisis and diabetes supply manage Chronic complication: ?To find the relationship of blood glucose levels to long- term complications of diabetes in screening and preventative measures Lifestyle and healthy coping: ?Described lifestyle and healthy coping strategies to rule out diabetes self-management Diabetes to stress and support: ?Recognize Diabetes to stress and be able to identified support options Learning objectives: The patient was provided with verbal and written education on the following topi cs as outlined below. Assess patient education level/literacy/barriers, patient's last A1c on 07/05/2025 6% Patient did not bring meter to today's visit, patient given new OneTouch meter with date and time set. At this time patient has no questions regarding how to use glucometer. Patient complains of yeast infection on Jardiance, message sent to Dr. Capps regarding side effect from medication. At today's visit Dr. Capps discontinued Jardiance. Patient was informed to stop Jardiance Patient is currently waiting on PA for Mounjaro 5 mg weekly. After discussing Mounjaro with patient and her daughter, they report that she has not taken Mounjaro 2.5 mg for approximately a month. Recommended to patient and her daughter they restart Mounjaro 2.5 mg before titrating up to 5 mg due to patient stating that she had, heartburn and diarrhea that she thinks was related to Mounjaro. Patient brought plan into today's visit, she is currently taking vitamin D3 50 mcg not 5000 mcg. Patient also reports she has atorvastatin 20 mg, denies muscle cramps New prescription for Mounjaro 2.5 mg weekly requested, explained to patient it may take a few weeks for PA She is currently taking metformin 1000 mg b.i.d. The patient met all learning objectives and was able to verbalize understanding and provide teach back of education topics discussed . The patient was provided with the opportunity to ask questions and all questions were answered. Topics covered in today?s session included: Medications (If applicable) * Name of medication? * Dosing/administration instructions? * Mechanism of action? * Potential side effects? * Potential adverse reaction and appropriate treatment? * Review onset, peak, duration Assess for concerns re: insurance coverage, cost, barriers to compliance Insulin/Injectables (If applicable) * Storage/care of insulin?? * Injection sites? * Site rotation? * Onset, peak, duration * Drawing up insulin? * Injecting insulin/other injectables? * Sharps disposal Continuous blood glucose monitoring (if applicable) Educational Materials: The patient was provided with the following written educational materials: Target Goal handout Smart Goal: Patient will test glucose twice a day at various times of the day Patient Response to instructions: Comprehension of Instructions: fair Readiness to make changes:? Contemplation How confident they feel about making changes: Fair Portions of this note were created using voice recognition software, please excuse any words or phrases that may have been misinterpreted. Medications: Discontinued tirzepatide (Mounjaro) Discontinued Reason: Doctor's Order 5 mg subcut QWEEK 2 mL 7RF E11.9 - Type 2 diabetes mellitus without complications Coding Level of Care Code Est Pt Level 1 (91224) Diagnoses Dyslipidemia associated with type 2 diabetes mellitus E11.69; E78.5
== END 2025-07-24 09:49 | disposition home or self-care (01) ==
LOC: HO.ENCR 09:10
PROVIDERS: PCP Physician Assistant Medical; Visit Provider Registered Nurse Diabetes Educator
DX: E11.69 Type 2 diabetes mellitus with other specified complication (principal); E78.5 Hyperlipidemia, unspecified
CPT/HCPCS: 99499

== ENCOUNTER 2025-08-01 11:29 | Outpatient (AMB) | payer OTHER, SELFPAY ==
[2025-08-01 11:32] VITALS: BP 138/64; PULSE 77; O2SAT 96; BMI 42.4
--- NOTE | 2025-08-01 11:32 | A.OFFVIS_ITS ---
Vital Signs 3 08/01/25 11:32 Height 5 ft 3 in Weight 239 lb 10.279 oz BMI 42.4 BP 138/64 Blood Pressure Location Lt brachial Position Sitting Pulse 77 Pulse Source Pulse Oximeter Pulse Oximetry (%) 96 Oxygen Delivery Method Room Air Intake Visit Reasons: Hyperparathyroidism, Hypercalceria, DM Intake Note: Patient presents today to establish treatment for Type 2 Diabetes Mellitus Hyperparathyroidism Hypercalciuria: Last Diabetic eye exam was on: 12/2024, [facility], glasses were prescribed. Last Podiatry exam was on: Patient does not see a Operations Specialists Most recent HbA1c: 6.0%, 07/05/2025 Random Glucose: 189 mg/dL Bond Underwriter Required: Yes Bond Underwriter Language: Liberian Bond Underwriter Services: Bond Underwriter Offered & Declined Accompanied by: Daughter Allergies propolis (bee glue) Allergy (Intermediate, Verified 08/01/25 11:39) Rash omeprazole Allergy (Mild, Verified 08/01/25 11:39) Unknown esomeprazole Allergy (Verified 08/01/25 11:39) Rash Medication List - Last Reconciled 08/01/25 by Amadou Capps MD atorvastatin (Lipitor) 20 mg PO BEDTIME famotidine 20 mg PO BEDTIME PRN furosemide 20 mg PO DAILY Jardiance (empagliflozin) 25 mg PO DAILY NS lansoprazole 30 mg PO DAILY meloxicam 15 mg PO DAILY PRN metformin ER 1,000 mg (2 x 500 mg) PO BID tirzepatide (Mounjaro) 5 mg (0.5 mL) subcut QWEEK valsartan 80 mg PO DAILY HPI Comments Details: 55-year-old female coming in today for initial evaluation of type 2 diabetes mellitus and elevated PTH levels. Patient last saw Dr. Mora on 07/05/2025 Here with daughter Mary. Daughter doing interpretation for ukranian language Type 2 diabetes mellitus History of diabetes Diagnosed in March 2020, was found on regular blood work Most recent HbA1c: 6.0%, 07/05/2025 6.6% Prior therapy: Current regimen: Jardiance 25 mg daily (summer 2024 one yeast infection) no longer taking Metformin 500x2 ER BID Mounjaro 5 mg weekly (started early may 2025, doesnt have refills since last dose 06/17/25) Denies any symptoms of hyperglycemia including polyphagia, polyuria, polydipsia. Denies any hypoglycemic symptoms. SMBG's Glucometer download shows she is checking her blood sugars once a day. Ranges 97-231 with average of 152. 82% range with 18% hyperglycemia and no hypoglycemia Random blood glucose : 124 mg /dl Vaccines: doesnt get flu vaccine Didnt get covid vaccine Doesnt think she ever got pneumoccoccal vaccine Complications Eye exam: Last eye exam was 12/2024, no retinopathy per patient , [facility] Neuropathy: no symptoms , doesnt see podiatry Kidney disease: no kidney disease EGFR 104, creatinine 0.62 from February 2025 urine microalbumin creatinine ratio less than 9 from February 2025 Macrovascular complications: No history of macrovascular complications. 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 Elevated PTH level Chart review shows blood work from March 2025 showed PTH of 69 (15-65 pg/mL), ionized calcium 5.3, blood work from February 2025 showed calcium of 10.6 with albumin of 4.5, corrected calcium would be 10.1. Kidney stones: none Fractures: left elbow 2022, fell on elbow, right elbow 2020, fell on steps Bone density: not done Family history: no family history of calcium problems or kidney stones Vitamin-D: 5000 units every other day started 1 week ago, takes it during winter months Calcium intake: none , milk : not often, cheese or yogurt : not often [facility] Medical History (Updated 07/05/25 @ 10:52 by Tomasa Mora MD) Dyslipidemia associated with type 2 diabetes mellitus Vitamin D deficiency Elevated parathyroid hormone Fracture of distal humerus GERD (gastroesophageal reflux disease) HTN (hypertension) Medial meniscus tear Diabetes Surgical History Hx of eye surgery History of surgical removal of meniscus of knee S/P excision of lipoma History of esophagogastroduodenoscopy (EGD) H/O colonoscopy Family History Brother Diabetes Mother Diabetes Social History Household Members: Spouse and Children Housing: House Are you a primary emergency care attendant to a significant other at home: No Do you presently have visiting nurse or other home services: No Alcohol intake: never Patient Tobacco Use Status: Never used Tobacco Current occupational status: employed Current occupation: rt handed Physical Exam Vital Signs: Last Vital Signs Pulse 77 08/01/25 11:32 BP 138/64 08/01/25 11:32 Pulse Ox 96 08/01/25 11:32 Oxygen Delivery Method Room Air 08/01/25 11:32 BMI result Body Mass Index 42.4 Absence of Cushingoid features. Absence of acromegalic features. Neck exam reveals nl size thyroid about 15 gms. No thyroid nodules palpable. No carotid bruits present. Lungs CTA. Heart S1 S2, Reg R/R. No M/R/ G. Skin exam reveals absence of vitiligo or acanthosis nigricans. Abdominal exam reveals Soft NT/ND with NA BS. No organomegaly present. Neck Other: . Extrem Other: Visual exam of foot performed. No ulcerations or open lesions. No onchomycosis, no callouses.Pulses 2 + distally Sensation intact to monofilament exam. Vibratory sensation sensed is intact with 128 Hz tuning fork Results Reviewed Results Reviewed: Laboratory Last Values Glucose (Clinic) 189 mg/dL (60-115) H 08/01/25 11:42 Assessment & Plan Assessment & Plan (1) Diabetes: Code(s): E11.9 - Type 2 diabetes mellitus without complications Category: Medical Qualifiers: Diabetes mellitus complication status: without complication Diabetes mellitus terminal clerk insulin use: without nursing home use Diabetes mellitus type: t ype 2 Qualified Code(s): E11.9 - Type 2 diabetes mellitus without complications Plan: This is a 55-year-old female with a history of type 2 diabetes being treated with metformin and Mounjaro with excellent glycemic control and no known microvascular or macrovascular complications Plan is to continue the current therapy. Patient should check lipid profile and microalbumin to creatinine ratio ordered by Dr. Mora. She will follow up with Dr. Mora upon her return. I also gave her a sample of Harpreet 3+ sensors and place a script for Harpreet 3+ sensors. She will follow up with Dr. Mora on her returned (2) Elevated parathyroid hormone: Code(s): R79.89 - Other specified abnormal findings of blood chemistry Category: Medical Plan: Elevated PTH level thought to be due to insufficient calcium and vitamin-D intake. This was adjusted by Dr. Mora. Plan is to repeat labs a few months and follow up with Dr. Mora Medications: New 2 FreeStyle Harpreet 14 Day Sensor (flash glucose sensor) As directed change every 14 days 2 ea 5RF NS Coding Level of Care Code Est Pt Level 4 (77612) Diagnoses Type 2 diabetes mellitus without complication, without long-term current use of insulin E11.9 Diabetes mellitus complication status: without complication Diabetes mellitus nursing home insulin use: without nursing home use Diabetes mellitus type: type 2 Elevated parathyroid hormone R79.89
[2025-08-01 11:46] LABS: Glucose, Whole Blood 189 mg/dL (60-115)
== END 2025-08-01 14:30 | disposition home or self-care (01) ==
LOC: HO.ENCR 11:30
PROVIDERS: PCP Physician Assistant Medical; Visit Provider Internal Medicine Endocrinology, Diabetes & Metabolism
DX: E11.9 Type 2 diabetes mellitus without complications (principal); R79.89 Other specified abnormal findings of blood chemistry
CPT/HCPCS: 99214

== ENCOUNTER → 2025-08-01 11:29 | Outpatient (BNVA) | payer OTHER, SELFPAY | PROVIDERS: PCP Physician Assistant Medical; Visit Provider Internal Medicine Endocrinology, Diabetes & Metabolism | DX: E11.9 Type 2 diabetes mellitus without complications (principal); R79.89 Other specified abnormal findings of blood chemistry; Z79.84 Long term (current) use of oral hypoglycemic drugs | CPT/HCPCS: 82947 ==

== ENCOUNTER 2025-09-04 10:00 | Outpatient (AMB) | payer OTHER, SELFPAY ==
--- NOTE | 2025-09-04 10:05 | A.OFFVIS_ITS ---
Intake Intake Visit Reasons: 60 mins Regulatory Affairs Associate Required: Yes Regulatory Affairs Associate Language: Cuban Regulatory Affairs Associate Services: Regulatory Affairs Associate Offered & Declined Regulatory Affairs Associate Name: Pt's Daughter Accompanied by: Self / Same As Patient Allergies propolis (bee glue) Allergy (Intermediate, Verified 08/01/25 11:39) Rash omeprazole Allergy (Mild, Verified 08/01/25 11:39) Unknown esomeprazole Allergy (Verified 08/01/25 11:39) Rash HPI Comprehensive Diabetes Asmnt Most Recent Diabetes Results: 2 Creatinine, (0.5-1.4) 0.66 mg/dL 12/08/22 BUN, (9-16) 13 mg/dL 12/08/22 Sodium, (135-145) 143 mmol/L 12/08/22 Potassium, (3.3-5.1) 4.5 mmol/L 12/08/22 Chloride, (96-108) 108 mmol/L 12/08/22 Carbon Dioxide, (22-29) 26 mmol/L 12/08/22 Calcium, (8.4-10.2) 10.0 mg/dL 12/08/22 AST, (5-31) 18 U/L 12/08/22 ALT, (0-31) 22 U/L 12/08/22 Total Protein, (6.5-8.0) 7.0 g/dL 12/08/22 Albumin, (3.5-5.0) 4.5 g/dL 12/08/22 [facility] Medical History (Updated 07/05/25 @ 10:52 by Tomasa Mora MD) Dyslipidemia associated with type 2 diabetes mellitus Vitamin D deficiency Elevated parathyroid hormone Fracture of distal humerus GERD (gastroesophageal reflux disease) HTN (hypertension) Medial meniscus tear Diabetes Surgical History Hx of eye surgery History of surgical removal of meniscus of knee S/P excision of lipoma History of esophagogastroduodenoscopy (EGD) H/O colonoscopy Family History Brother Diabetes Mother Diabetes Social History Household Members: Spouse and Children Housing: House Are you a primary insurance healthcare consultant to a significant other at home: No Do you presently have visiting nurse or other home services: No Alcohol intake: never Patient Tobacco Use Status: Never used Tobacco Current occupational status: employed Current occupation: rt handed Assessment & Plan Assessment & Plan (1) Dyslipidemia associated with type 2 diabetes mellitus: Code(s): E11.69 - Type 2 diabetes mellitus with other specified complication; E78.5 - Hyperlipidemia, unspecified Plan: Diabetes self-management education and support participation record Assessment/scale: 1= needs instructed? 2= needs review? 3= comprehend keep point? 4= demonstrates understanding/ competent? NC= Not Covered Topics Learning Objective: Initial visit Initial or post srvc Initial or post srvc Initial or post srvc Initial or post srvc Initial or post srvc Post srvc Comments Pre Edu-assessment/plan Outcome or reassess O utcome or reassess Outcome or reassess Outcome or reassess Outcome or reassess Outcome or reassess Diabetes pathophysiology 1 3 Healthy eating 1 3 Being active 1 3 Taking medication 1 3 Monitoring glucose 1 3 Acute complication 1 3 Chronic complicated 1 Lifestyle and healthy coping 1 Diabetes distress in support 1 ?Diabetes pathophysiology: ?Defined diabetes med identify own type of diabetes; list 3 options for treating diabetes Healthy eating: ?Described effect of type, amount and ?timing of food on blood glucose; list 3 methods for planning meal Being active: ?State effect of exercise on blood glucose level Taking medication: ?State effect of diabetes medications on diabetes; name diabetes medications taking, action and side effects Monitoring glucose: ?Identify recommended blood glucose targets and personal target Acute complication: ?List symptoms and treatment of hyper and hypoglycemia, DKA, sick day guidelines and guidelines for severe weather or situations of crisis and diabetes supply manage Chronic complication: ?To find the relationship of blood glucose levels to long- term complications of diabetes in screening and preventative measures Lifestyle and healthy coping: ?Described lifestyle and healthy coping strategies to rule out diabetes self-management Diabetes to stress and support: ?Recognize Diabetes to stress and be able to identified support options Learning objectives: Learning objectives: The patient was provided with verbal and written education on the following topics as outlined below. The patient met all learning objectives and was able to verbalize understanding and provide teach back of education topics discussed . The patient was provided with the opportunity to ask questions and all questions were answered. Patient Assessment Assess patient education level/literacy/barriers patient's last A1c on 07/05/2025 6% Patient is currently wearing Harpreet 14 day sensor, message sent to Dr. Capps to send prescription for Harpreet 3+ sensors so patient will be able to use sensor alerts Patient is currently on Mounjaro 5 mg weekly Metformin 1000 mg b.i.d. What is Diabetes? Pathophysiology How the body produces and uses insulin Identify type of DM Risk factors Signs of Diabetes Brief overview of Diabetes Management Monitoring blood sugar Following a meal plan Regular exercise Maintaining a healthy weight Taking medication as needed Members of the care team (PCP, RN, MA, RD, CDE, compliance manager) Blood glucose monitoring When/how often to test Target blood sugar ranges Introduction to Nutrition Importance of healthy diet in managing DM Diet is personalized to individual preference Review patient?s regular diet/food preferences Who prepares meals/does food shopping/ Dining out?/ Barriers? How diet effects glucose Eating 3 balanced meals a day with small, healthy snacks between meals Review food groups Carbohydrates: What is a carbohydrate/Which food/food groups are considered carbohydrates Effect of carbohydrates on blood glucose Portion sizes Reading food labels Basic carb counting (if applicable per nursing assessment) Plate method Meal planning Recommendations: Follow plate method, consistent carbs and read nutritional labels. Smart Goal Assessment: Patient will test glucose at various times of the day Patient is meeting goal 100% She now has CGM Educational Materials: The patient was provided with the following written educational materials: Planning Healthy Meals Handout Patient Response to instructions: Comprehension of Instructions: Fair Readiness to make changes: Contemplation How confident they feel about making changes: Positive Portions of this note were created using voice recognition software, please excuse any words or phrases that may have been misinterpreted. Medications: Discontinued 2 FreeStyle Harpreet 14 Day Sensor (flash glucose sensor) Discontinued Reason: Doctor's Order As directed change every 14 days 2 ea 5RF NS Patient Instructions: Include regular daily activity. ADA recommends 30 minutes of exercise 5 days a week. Weight loss talk to PCP or Gift Basket Packer before starting new plan. Test blood sugar as directed; Fasting and 2hpp largest meal. Watch trends in results. Utilize results and to assess how food, physical activity and medications affect blood sugar results. Bring glucometer or CGM to next visit. Be knowledgeable about diabetes medication, its action, side effects, efficacy, toxicity, prescribed dosage, appropriate timing and frequency of administration, effect of missed and delayed doses and instructions for storage, travel and safety. Problem solving techniques to monitor hypo/hyperglycemia episodes and treatments. Reduce risk reduction behaviors, smoking cessation, regular eye, foot and dental examinations. Coding Level of Care Code Est Pt Level 1 (40567) Diagnoses Dyslipidemia associated with type 2 diabetes mellitus E11.69; E78.5
== END 2025-09-04 10:55 | disposition home or self-care (01) ==
LOC: HO.ENCR 10:01
PROVIDERS: PCP Physician Assistant Medical; Visit Provider Registered Nurse Diabetes Educator
DX: E11.69 Type 2 diabetes mellitus with other specified complication (principal); E78.5 Hyperlipidemia, unspecified
CPT/HCPCS: 99499